=== PATIENT | male | born 1955 | race Caucasian/White ===

== ENCOUNTER 2020-02-16 14:35 | Emergency (ER) | payer OTHER, SELFPAY ==
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
[2020-02-16 14:36] VITALS: BP 133/102; PULSE 88; RESP 20; TEMP 36.5; O2SAT 100
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
[2020-02-16 15:44] LABS: Basophils Percent Auto 0.2 % (0.2-1.2); Hematocrit 40.1 % (42.0-52.0); Hemoglobin 13.7 g/dL (14.0-18.0); Immature Granulocyte Absolute 0.04 K/mm3 (0.00-0.031); Immature Granulocyte Percent A 0.3 % (0-0.5); Lymphocytes Absolute Auto 1.07 K/mm3 (0.9-3.2); Lymphocytes Percent Auto 7.9 % (18.3-44.2); Mean Corpuscular HGB Conc 34.2 g/dl (32-36); Mean Corpuscular Hemoglobin 30.7 pg (26-34); Mean Corpuscular Volume 89.9 fl (80-100); Mean Platelet Volume 11.5 fl (7.4-10.4); Monocytes Absolute Auto 1.2 K/mm3 (0.1-0.6); Neutrophils Absolute Auto 11.2 K/mm3 (1.3-6.7); Neutrophils Percent Auto 82.6 % (45.5-73.1); Platelet Count Result 212 k/mm3 (150-375); Red Blood Count 4.46 M/mm3 (4.6-6.20); Red Cell Distribution Width 12.9 % (11.5-14.5); White Blood Count 13.6 K/mm3 (4.5-10.0)
[2020-02-16 15:52] LABS: INR 1.1; Prothrombin Time 14.2 Seconds (11.1-14.7)
[2020-02-16 15:53] LABS: Partial Thromboplastin Time 24.7 SECONDS (22.3-36.8)
[2020-02-16 15:55] LABS: Alanine Aminotransferase 24 U/L (4-50); Albumin Level 4.1 g/dL (3.5-5.1); Alkaline Phosphatase 69 U/L (38-126); Aspartate Amino Transferase 37 U/L (17-59); Bilirubin,Total 1.2 mg/dL (0.2-1.3); Blood Urea Nitrogen 18 mg/dL (9-20); Calcium 9.3 mg/dL (8.4-10.2); Carbon Dioxide 26 mmol/L (22-30); Chloride 105 mmol/L (98-107); Estimated Glomerular Filt Rate > 60; Glucose 101 mg/dL (75-110); Potassium 3.5 mmol/L (3.4-5.0); Sodium 137 mmol/L (137-145)
[2020-02-16 17:33] VITALS: BP 158/80; PULSE 75; RESP 18; O2SAT 100
[2020-02-16 18:29] VITALS: BP 159/76; PULSE 72; RESP 16; O2SAT 100
== END 2020-02-16 18:46 | disposition short-term general hospital (02) ==
PROVIDERS: Physician Assistant; Emergency Provider Emergency Medicine; PCP Internal Medicine
DX: S09.90XA Unspecified injury of head, initial encounter (principal); K21.9 Gastro-esophageal reflux disease without esophagitis; I10 Essential (primary) hypertension; R41.82 Altered mental status, unspecified; M47.812 Spondylosis without myelopathy or radiculopathy, cervical region; V17.0XXA Pedal cycle driver injured in collision with fixed or stationary object in nontraffic accident, initial encounter; Y93.55 Activity, bike riding
CPT/HCPCS: 36415; 70450; 71046; 72125; 73130; 73521; 73590; 80053; 85025; 85610; 85730; 99285

== ENCOUNTER 2023-12-20 11:47 | Day surgery (SDC) | payer MEDICARE, OTHER, SELFPAY ==
[2023-12-07 09:00] VITALS: BMI 25.1
[2023-12-07 15:12] VITALS: BMI 25.1
[2023-12-20 12:17] VITALS: BP 151/91; PULSE 58; RESP 16; TEMP 36.3; O2SAT 100; BMI 24.7
--- NOTE | 2023-12-20 12:26 | PM.HPGS ---
History of Present Illness History of Present Illness Consent: Risks, benefits, and alternatives have been discussed and questions answered. Patient agrees to proceed with procedure. Chief complaint: Positive Cologuard test, Narrative: Allen Obrien is a 68 year old male presents for colonoscopy. Patient recently a positive Cologuard test. Patient denies any blood in his stool. He denies abdominal pain. Has had no bleeding. Family history noncontributory. Review of Systems Review of Systems: Review of Systems is noncontributory. Constitutional: Constitutional: Reports body ache(s) PMFSH Past Medical History Medical History (Updated 12/20/23 @ 12:28 by Vincenzo Murphy MD) History of gastroesophageal reflux (GERD) History of hypertension Social History Social History Smoking status: Never smoker Substance use type: does not use Living arrangements: with family Spiritual care concerns: No Meds Home Medications and Allergies Home Medications Medication Instructions Recorded Confirmed Type citalopram 20 mg tablet 20 mg PO DAILY 02/16/20 12/20/23 History hydrochlorothiazide 12.5 mg capsule See Rx Instructions .Route .COMPLEX 02/16/20 12/20/23 History lisinopril 20 mg tablet 20 mg PO DAILY 02/16/20 12/20/23 History omeprazole 20 mg capsule,delayed 20 mg PO DAILY PRN Indigestion 02/16/20 12/20/23 History release diclofenac sodium 75 mg 75 mg PO BID PRN Pain 12/07/23 12/20/23 History tablet,delayed release finasteride 5 mg tablet 5 mg PO DAILY 12/07/23 12/20/23 History levothyroxine 75 mcg tablet 75 mcg PO DAILY 12/07/23 12/20/23 History Allergies Allergy/AdvReac Type Severity Reaction Status Date / Time shellfish derived Allergy Other Verified 12/20/23 12:08 Vital Signs Vital Signs - 24 hr 12/20/23 12:17 Temperature 97.4 F L Pulse Rate 58 L Respiratory Rate 16 Blood Pressure 151/91 H Pulse Oximetry 100 Oxygen Delivery Room Air Exam Narrative: Physical exam reveals patient to be alert signs stable. HEENT exam is unremarkable. Patient is anicteric. Lungs are clear to auscultation and percussion. Heart is without murmur or extra sounds. Abdomen bowel sounds are present soft nontender with no organomegaly. Digital external rectal exam normal. Assessment and Plan Assessment and plan (1) Positive colorectal cancer screening using Cologuard test: Code(s): R19.5 - Other fecal abnormalities Status: Acute Assessment and Plan: Patient found to have positive Cologuard test. For this reason screening exam will be performed.
[2023-12-20] MEDS: LACTATED RINGERS 1,000 ML 150 ML IV CONT (12:27)
--- NOTE | 2023-12-20 12:37 | WPDANESEPPF ---
Anes - Initial Pre Proc Eval Procedure: Operation Date: 12/20/23 13:00 Proposed Procedures p Diagnostic Colonoscopy - Vincenzo Murphy MD Date/Time: 12/20/23 12:37 Surgeon: Vincenzo Murphy MD Pre Op Diagnosis: Positive Cologuard test, Patient Data Age: 68 Gender: M Height: 1.83 m Weight: 83 kg Last Vital Signs Temp 36.3 C L 12/20/23 12:17 Pulse 58 L 12/20/23 12:17 Resp 16 12/20/23 12:17 BP 151/91 H 12/20/23 12:17 Pulse Ox 100 12/20/23 12:17 O2 Del Method Room Air 12/20/23 12:17 Allergies Allergy/AdvReac Type Severity Reaction Status Date / Time shellfish derived Allergy Other Verified 12/20/23 12:08 Home Medications Medication Instructions Recorded Confirmed Type citalopram 20 mg tablet 20 mg PO DAILY 02/16/20 12/20/23 History hydrochlorothiazide 12.5 mg capsule See Rx Instructions .Route .COMPLEX 02/16/20 12/20/23 History lisinopril 20 mg tablet 20 mg PO DAILY 02/16/20 12/20/23 History omeprazole 20 mg capsule,delayed 20 mg PO DAILY PRN Indigestion 02/16/20 12/20/23 History release diclofenac sodium 75 mg 75 mg PO BID PRN Pain 12/07/23 12/20/23 History tablet,delayed release finasteride 5 mg tablet 5 mg PO DAILY 12/07/23 12/20/23 History levothyroxine 75 mcg tablet 75 mcg PO DAILY 12/07/23 12/20/23 History Patient hx anesthesia problems: none Family hx anesthesia problems: none Results Review: All pre-operative results and documents have been reviewed as part of the pre-operative evaluation. [facility] Past Medical History Medical History History of gastroesophageal reflux (GERD) History of hypertension Social History Social History Smoking status: Never smoker Substance use type: does not use Living arrangements: with family Spiritual care concerns: No Anes - Eval Final PreProcedure Day of Procedure 12/20/23 12:37 Patient weight: normal Heart: regular rate and rhythm Lungs: clear to auscultation Airway: Mallampati scale class II Neurological: alert and oriented Last oral intake: >/= 8 hours ASA classification: III Emergent: no Anesthetic plan: proceed Anesthesia type and monitoring: general GIVS and standard monitoring Results Review: All pre-operative results and documents have been reviewed as part of the pre-operative evaluation. Informed Consent: The patient's anesthetic plan and its attendant risks and benefits were discussed with the patient/family/POA. Questions were solicited and answers provided to the satisfaction of the patient/family/POA.
[2023-12-20] MEDS: SIMETHICONE ORAL SUSPENSION 20 MG/0.3 ML 30 ML BOTTLE 0.6 ML IRRIGATION (13:06)
[2023-12-20 13:15] VITALS: BP 132/72; PULSE 62; RESP 18; O2SAT 98
[2023-12-20 13:25] VITALS: BP 125/78; PULSE 68; RESP 18; O2SAT 98
--- NOTE | 2023-12-20 13:26 | WPDANESPN ---
Anes - Prog Note Post-Op Date/Time: 12/20/23 13:26 Cardiovascular status: normal Respiratory status: normal Airway patency: baseline Mental status: baseline Post-Op hydration status: normal Vital Signs: Last Vital Signs Temp 36.3 C L 12/20/23 12:17 Pulse 62 12/20/23 13:15 Resp 18 12/20/23 13:15 BP 132/72 12/20/23 13:15 Pulse Ox 98 12/20/23 13:15 O2 Del Method Room Air 12/20/23 13:15 Pain Score (VAS): 0 I/O: Intake & Output 12/19/23 12/20/23 12/20/23 23:59 07:59 15:59 Intake Total 400 Balance 400 Patient Feedback: Patient satisfied with anesthetic care.
[2023-12-20 13:35] VITALS: BP 137/81; PULSE 68; RESP 18; O2SAT 100
== END 2023-12-20 13:45 | disposition home or self-care (01) ==
PROVIDERS: PCP Internal Medicine; Visit Provider Internal Medicine Gastroenterology
PROC: 0DJD8ZZ Inspection of Lower Intestinal Tract, Via Natural or Artificial Opening Endoscopic (ICD-10-PCS; CPT 45378; principal; 2023-12-20 13:00)
DX: R19.5 Other fecal abnormalities (principal); K64.8 Other hemorrhoids
CPT/HCPCS: G0121; 45378

== ENCOUNTER 2025-01-06 06:56 | Outpatient (CLI) | payer MEDICARE, OTHER, SELFPAY ==
--- NOTE | ~2025-01-06 | MR_ITS ---
MRI of the right knee Clinical history: Pain Technique: Coronal proton density and proton density-weighted images, sagittal proton-density and T2 fat-sat images, and axial proton-density fat-saturated images were acquired. Findings: Anterior and posterior cruciate ligaments are intact. Medial collateral ligament and the la teral collateral ligament complex are intact. Popliteus tendon is intact. There is complex tearing of the posterior horn and body of the medial meniscus which are largely dimi nutive and somewhat macerated. No lateral meniscal tear evident. There is mild to moderate chondral malacia patella. There is patchy moderate chondral malacia the fem oral trochlea. There is diffuse grade IV chondromalacia throughout the medial compartment. There is m ild chondral thinning in the lateral compartment. Tricompartmental osteophyte formation is present. T here is mild amorphous reactive marrow edema in the medial tibial plateau and medial femoral condyle. There is cystic enthesopathic change at the PCL insertion of the tibia. Extensor mechanism is intact. Moderate joint effusion present. 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 There are loose bodies within the Rodríguez's cyst, largest measuring 1.2 cm and 0.9 cm in diameter. Impression: Extensive complex tearing of the posterior horn and body of the medial meniscus. Severe medial compartment degenerative change. Moderate patellofemoral compartment degenerative rojas e. Mild to moderate lateral compartment degenerative change. 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 Moderate joint effusion. Reviewed, dictated and finalized at location . Impression: Extensive complex tearing of the posterior horn and body of the medial meniscus . Severe medial compartment degenerative change. Moderate patellofemoral compartm ent degenerative change. Mild to moderate lateral compartment degenerative guthrie ge. 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 Moderate joint effusion.
== END 2025-01-06 06:57 | disposition home or self-care (01) ==
LOC: MICIMG 06:56
PROVIDERS: PCP Internal Medicine; Visit Provider Orthopaedic Surgery
DX: S83.231A Complex tear of medial meniscus, current injury, right knee, initial encounter (principal); X58.XXXA Exposure to other specified factors, initial encounter; M17.11 Unilateral primary osteoarthritis, right knee; M71.21 Synovial cyst of popliteal space [Baker], right knee; M25.461 Effusion, right knee
CPT/HCPCS: 73721

== ENCOUNTER 2025-01-23 13:06 | Outpatient (CLI) | payer MEDICARE, OTHER, SELFPAY ==
--- OUTSIDE RECORDS SUMMARY | 2025-01-23 14:12 | XMS_ITS | Data Portability ---
Author Organization [place] [facility], Main Office Address [address] [place] [id number] Care Team Providers Care Forging Die Sinker Name Role Phone SHEYLA QUIROS Primary Care Provider SHEYLA QUIROS Referring Provider [phone] Assessment Encounter Date Assessment Date Assessment LastModified by Organization Details LastModified Time 06/12/2023 06/12/2023 patient returns. He is here requesting a cortisone shot in his right knee. In 1 week he is leaving for a trip to [facility] and [facility] and he would like cortisone shot today to optimize his comfort in his right knee. He had x-rays in September of this year which demonstrate rather advanced medial compartment osteoarthritis of the right knee with sclerosis and some flattening of medial femoral condyle. His left knee incidentally has about 1.5 mm of medial joint space remaining. He started diclofenac 2 months ago when he was having lot of posterior knee and calf pain and this helped dramatically. In fact over last couple weeks he has cut back on the diclofenac to 1 a day or even 1 every other day. On exam today there is minimal trace effusion right knee. He does have a varus alignment range of motion 0-140. Skin looks healthy. Impression: Patient has severe medial compartment osteoarthritis the right knee. He is tolerating this well. He would like a cortisone shot today before leaving on his trip to [facility]. I discussed risks of side effects including risk of infection with him. After ChloraPrep prep, 20 mg of Kenalog and 4 cc of 0.5% ropivacaine were injected the right knee without difficulty. I explained that when he gets back if he would like to stay on the diclofenac we will need to check blood work in will order a CBC and CMP to make sure it is not showing evidence of liver or kidney side effects or GI blood loss. This was discussed. I will see him back in 3 months to assess progress. Not available 06/12/2023 14:41:02 09/11/2023 09/11/2023 Impression: Patient has radiographically severe osteoarthritis of the right knee but his symptoms are minimal. I have explained to him that the primary indication for doing a knee replacement is to alleviate pain and since he is not having pain, observation is appropriate at this time. We did talk about the fact that he might be a candidate for partial knee replacement and when he reaches a point where he is symptomatic enough to consider surgery, additional workup including an MRI scan of the indicated before deciding on whether not he would be a candidate for partial knee replacement. I have given him ortho info handouts on total knee replacement partial knee replacement and the [facility] booklet. I have offered him a cortisone shot today but he declines. He states he does not needed as he is asymptomatic. I have discussed with him that I expected some point his right knee will start bother him enough that knee replacement would be something he would want to pursue I am happy to see him back at any time for further discussion. 20 minutes were spent total care this patient more than half the time spent in [id number]-[id number] care. Not available 09/19/2023 17:16:37 Plan of Treatment Reminders Order Date Submit Date Provider Last Modified By Organization Details Last Modified Time Details Appointments None recorded. Lab PSA, serum or plasma 2024 025 [facility], [address] [facility], [place], [address], 5 09:41:20 CBC w/ auto diff 2024 025 [facility], [address] [facility], [place], [address], 5 09:41:19 CMP, serum or plasma 2024 025 [id number] [facility], [address] [facility], [place], [address], 5 09:41:19 TSH, serum or plasma 2024 025 [id number] [facility], [address] [facility], [place], [address], 5 09:41:20 T4, free, serum 2024 025 [facility], [address], [place], [address], 5 09:41:20 lipid panel, serum 2024 025 [id number] [facility], [address], [place], [address], 5 09:41:20 PSA, serum or plasma 2023 024 [id number] [facility], [address], [place], [address], 4 12:31:12 CBC w/ auto diff 2023 024 [id number] [facility], [address], [place], [address], 4 12:31:10 CMP, serum or plasma 2023 024 [facility], [address], [place], [address], 4 12:31:11 TSH, serum or plasma 2023 024 [id number] [facility], [address], [place], [address], 4 12:31:11 T4, free, serum 2023 024 [id number] [facility], [address], [place], [address], 4 12:31:11 lipid panel, serum 2023 024 [email or web address] [facility], [address], [place], [address], 4 12:31:11 Referral None recorded. Procedures injection/a spiration joint/bursa (PROC) - in office procedure, administere d by provider 2022 023 In-Office Order, Internal Use Only DO Not Attach Compendium DO Not Attach Compendium, Do Not Delete/merge, [id number] 3 14:19:20 Surgeries None recorded. Imaging None recorded. Medication Orders Protonix 40 mg tablet,edgar yed release 2024 025 [id number] [address] [place], [address], 5 16:06:16 Kenalog 10 mg/mL suspension for injection 2022 023 [id number] [place], [address], 5 15:40:46 ropivacaine (PF) 5 mg/mL (0.5 %) injection solution 2022 023 [id number] [place], [address], 5 15:40:56 Patient TargetsNo targets recorded. Patient Instructions Encounter Date Encounter Id Patient Instructions Last Modified By Organization Details Last Modified Time 11/10/2023 [id number] risk assessment* FIGUEROA Not availabl e 11/10/2023 16:32:09 Personalized [facility] Plan and Screening Recommendations Advance Directives - Do you have one? Yes Advance Directives - Do we have your advance directive on file in your health record? No, please bring in a copy at your earliest convenience Primary Prevention/Interven tion (prevents or decreases the chance of common diseases from occurring) Smoking Risk: Non Smoker Alcohol Misuse Screening: Negative Weight: Appropriate Physical activity: Appropriate physical activity Nutrition: Good Fall Risk (screened today): Low Vaccines Pneumococcal: Ordered Recommended today Recommended today, but you have declined Influenza: Ordered Recommended today Recommended today, but you have declined Chronic Disease Risks Stroke: Low Risk Intermediate Risk I have no recommendations Act kaleb diagnosis, Continue current treatment plan Heart Attack: Low risk Intermediate Risk I have no recommendations Act kaleb diagnosis, Continue current treatment plan Clogging of the Arteries: Low risk Intermediate Risk I have no recommendations Act kaleb diagnosis, Continue current treatment plan Diabetes: Low Risk I have no recommendations Secondary Prevention/Interven tion (detects treatable diseases before they may cause symptoms, disability, or ) Prostate Cancer Screening: Colon Cancer Screening: Colonoscopy Date Screening Last Performed: _unsure___ Eye Disease Screening: Dementia Risk: Low I have no recommendations Depression Screening: Negative Active diagnosis, Continue current treatment plan [email or web address] Not available 11/10/2023 15:18:54 Wellness evaluat ion risk assessment stable. Follow-up for hypertension-hypoth yroidism -hyperlipidemia -benign prostatic hypertrophy all clinically stable. Check blood work in the form of a CBC, CMP, lipid, thyroid and PSA. Continue on current Rx follow-up in six months. Portions of the record may have been created with voice recognition software. Occasional wrong-word or s ound-a-like substitutions may have occurred due to the inherent limitations of voice recognition software. Read the chart carefully and recognize, using context, where substitutions have occurred. [email or web address] Not available 11/10/2023 16:00:57 05/09/2024 [id number] Follow-up essent ial hypertension, hypothyroidism, benign prostatic hypertrophy and anxiety disorder all clinically stable. Will continue on current Rx recheck back in six months check blood work at that time. Next Appointment: 6 Months Approximate Date: 11/05/2024 Portions of the record may have been created with voice recognition software. Occasional wrong-word or s ound-a-like substitutions may have occurred due to the inherent limitations of voice recognition software. Read the chart carefully and recognize, using context, where substitutions have occurred. [email or web address] Not available 05/09/2024 16:13:24 11/07/2024 [id number] Follow-up essent ial hypertension, hypothyroidism, hyperlipidemia, GERD. Check blood work consisting of CBC, CMP, lipid, thyroid, PSA. Medically is doing well otherwise. Will start on some Protonix 40 mg once daily see if we can improve on his reflux symptomatology. Follow-up in six months Follow Up: 6 Months Approximate Date: 05/06/2025 Portions of record are template driven. When necessary additional context will be provided. Additionally some portions have been created with voice recognition software. Occasional wrong-word or s ound-a-like substitutions may have occurred due to the inherent limitations of voice recognition software. Read the chart carefully and recognize, using context, where substitutions may have occurred. Created: Sheyla Quiros M.D. 11.07.2024 03:06 PM [email or web address] Not available 11/07/2024 16:06:10 Reason for Referral None Reported. Results Created Date Observation Date Name Description Value Unit Range Abnormal Flag Note LastModifiedBy Organization Detail LastModifiedTime 07/17/2007/18/2023 T4, FREE T4, free 0.7 NG/dL 0.8-1. 8 low Not Available [facility] [address], [address], 07/18/2023 06:53:06 07/17/2007/18/2023 TSH TSH 7.43 mIU/L 0.40-4 .50 high Not Available [facility] [address], [address], 07/18/2023 06:53:07 07/31/2008/02/2023 THYRO GLOBU HAN ANTIB ODIES thyroglobuli n antibodies 7 IU/mL < or = 1 high Not Available [facility] [address], [address], 08/02/2023 09:19:49 07/31/20 23 08/02/2023 THYRO ID PEROX IDASE ANTIB ODIES thyroid peroxidase antibodies 25 IU/mL <9 high Not Available [facility] [address], [address], 08/02/2023 09:19:50 09/28/19 24 09/29/2023 T4, FREE T4, free 1.0 NG/dL 0.8-1. 8 normal Not Available [facility] [address], [address], 09/29/2023 03:22:15 09/28/19 24 09/29/2023 TSH TSH 11.04 mIU/L 0.40-4 .50 high Not Available [facility] [address], [place], [address], 09/29/2023 03:22:16 11/27/19 24 11/27/2023 COLOG UARD cologuard result reportable POSITI VE negati ve abnormal POSIT KALEB TEST RESUL T. A posit kaleb Colog uard resul t shoul d be follo wed with a colon oscop y or visua l exami natio n of the colon . The thomas l value (refe rence range ) for this assay is negat kaleb. TEST DESCR IPTIO N: Rinard site algor ithmi c santiago sis of stool DNA-b iomar kers with hemog lobin immun oassa y. Quant itati ve value s of indiv idual bioma rkers are not repor table and are not assoc iated with indiv idual bioma rker resul t refer ence range s. Colog uard is inten ded for color ectal cance r scree walt of adult s of eithe r sex, 45 years or older , who are at [facility] for color ectal cance r (CRC) . Colog uard has been appro tequila for use by the U.S. FDA. The perfo rmanc e of Colog uard was estab lishe d in a cross secti onal study of [facility] adult s aged 50-84 . Colog uard perfo rmanc e in patie nts ages 45 to 49 years was estim ated by josy-g victoria santiago sis of near- age group s. Colon oscop ies perfo rmed for a posit kaleb resul t may find as the most clini braeden signi fican t lesio n: color ectal cance r [4.0% ], advan landon adeno ma (incl uding sessi le marj ericka polyp s great er than or equal to 1cm diame ter) [20%] or non- advan landon adeno ma [31%] ; or no color ectal neopl elvia [45%] . These estim ates are deriv ed from a prosp ectiv e cross -sect ional scree walt study of 10,00 0 indiv idual s at avera ge risk for color ectal cance r who were scree adryan with both Colog uard and colon oscop y. (Zack Barnard. et al, N Engl J Med 2014; 370(1 4):12 86-12 97.) Colog uard may produ ce a false negat kaleb or false posit kaleb resul t (no color ectal cance r or preca ncero us polyp prese nt at colon oscop y follo w up). A negat kaleb Colog uard test resul t does not guara ntee the absen ce of CRC or advan landon adeno ma (pre- cance r). The curre nt Colog uard scree walt inter conrado is every 3 years . (Amer ican Cance r Socie ty and U.S. Multi -Soci ety Task Force ). Colog uard perfo rmanc e data in a 10,00 0 patie nt pivot al study using colon oscop y as the refer ence metho d can be acces sed at the follo wing locat ion: www.e xactl abs.c om/re shala . Addit ional descr iptio n of the Colog uard test proce ss, warni ngs and preca ution s can be found at www.c bassem esteband.c om. Not Available [facility] (Cologuard Orders Only) [address], [place], [address], 12/02/2023 13:19:24 11/30/19 24 12/01/2023 LIPID PANEL , STAND CARMEN cholesterol, total 201 mg/dL <200 high Not Available [facility] [address] [place], [address], 12/01/2023 05:50:56 11/30/19 24 12/01/2023 LIPID PANEL , STAND CARMEN HDL cholesterol 48 mg/dL > or = 40 normal Not Available [facility] [address] [place], [address], 12/01/2023 05:50:56 11/30/19 24 12/01/2023 LIPID PANEL , STAND CARMEN triglyceride s 142 mg/dL <150 normal Not Available [facility] [address] [place], [address], 12/01/2023 05:50:56 11/30/19 24 12/01/2023 LIPID PANEL , STAND CARMEN LDL-choleste rol 128 mg/dL _(erick c) high Refer ence range : <100 Jj able range <100 mg/dL for prima ry preve ntion ; <70 mg/dL for patie nts with CHD or diabe tic patie nts with > or = 2 CHD risk facto rs. LDL-C is now calcu lated using the Angie n-Hop kins teau matheus n, which is a valid ated novel clarence mejiate r accur acy than the Fried angelica equat ion in the estim ation of LDL-C . Angie heath SS et al. RACHEL. 2013; 310(1 9): 2061- 2068 (http ://ed ucati on.Qu jessica[employer]. com/f aq/FA Q164) Not Available [facility] [address] [place], [address], 12/01/2023 05:50:56 11/30/19 24 12/01/2023 LIPID PANEL , STAND CARMEN chol/HDLC ratio 4.2 (calc ) <5.0 normal Not Available [facility] [address] [place], [address], 12/01/2023 05:50:56 11/30/19 24 12/01/2023 LIPID PANEL , STAND CARMEN non HDL cholesterol 153 mg/dL _(erick c) <130 high For patie nts with diabe rory plus 1 major ASCVD risk facto r, treat ing to a non-H DL-C goal of <100 mg/dL (LDL- C of <70 mg/dL ) is consi dered a thera peuti c optio n. Not Available [facility] [address] [place], [address], 12/01/2023 05:50:56 11/30/19 24 12/01/2023 COMPR EHENS KALEB METAB OLIC PANEL glucose 88 mg/dL 65-99 normal Fasti ng refer ence inter conrado Not Available [address], [address], 12/01/2023 05:50:58 11/30/19 24 12/01/2023 COMPR EHENS KALEB METAB OLIC PANEL urea nitrogen (BUN) 20 mg/dL 7-25 normal Not Available [address], [address], 12/01/2023 05:50:58 11/30/19 24 12/01/2023 COMPR EHENS KALEB METAB OLIC PANEL creatinine 1.08 mg/dL 0.70-1 .35 normal Not Available [address], [address], 12/01/2023 05:50:58 11/30/19 24 12/01/2023 COMPR EHENS KALEB METAB OLIC PANEL eGFR 76 mL/mi n/1.7 3m2 > or = 60 normal Not Available [address], [address], 12/01/2023 05:50:58 11/30/19 24 12/01/2023 COMPR EHENS KALEB METAB OLIC PANEL BUN/creatini ne ratio SEE NOTE: (calc ) 6-22 Not Repor ericka: BUN and Creat inine are withi n refer ence range . Not Available [address], [address], 12/01/2023 05:50:58 11/30/19 24 12/01/2023 COMPR EHENS KALEB METAB OLIC PANEL sodium 139 mmol/ L 135-14 6 normal Not Available [address], [address], 12/01/2023 05:50:58 11/30/19 24 12/01/2023 COMPR EHENS KALEB METAB OLIC PANEL potassium 4.4 mmol/ L 3.5-5. 3 normal Not Available [address], [address], 12/01/2023 05:50:58 11/30/19 24 12/01/2023 COMPR EHENS KALEB METAB OLIC PANEL chloride 104 mmol/ L 98-110 normal Not Available [address], [address], 12/01/2023 05:50:58 11/30/19 24 12/01/2023 COMPR EHENS KALEB METAB OLIC PANEL carbon dioxide 30 mmol/ L 20-32 normal Not Available [address], [address], 12/01/2023 05:50:58 11/30/19 24 12/01/2023 COMPR EHENS KALEB METAB OLIC PANEL calcium 9.0 mg/dL 8.6-10 .3 normal Not Available [address], [address], 12/01/2023 05:50:58 11/30/19 24 12/01/2023 COMPR EHENS KALEB METAB OLIC PANEL protein, total 6.3 g/dL 6.1-8. 1 normal Not Available [address], [address], 12/01/2023 05:50:58 11/30/19 24 12/01/2023 COMPR EHENS KALEB METAB OLIC PANEL albumin 3.9 g/dL 3.6-5. 1 normal Not Available [address], [address], 12/01/2023 05:50:58 11/30/19 24 12/01/2023 COMPR EHENS KALEB METAB OLIC PANEL globulin 2.4 g/dL_ (calc ) 1.9-3. 7 normal Not Available [address] [place], [address], 12/01/2023 05:50:58 11/30/19 24 12/01/2023 COMPR EHENS KALEB METAB OLIC PANEL albumin/glob ulin ratio 1.6 (calc ) 1.0-2. 5 normal Not Available [address], [address], 12/01/2023 05:50:58 11/30/19 24 12/01/2023 COMPR EHENS KALEB METAB OLIC PANEL bilirubin, total 0.7 mg/dL 0.2-1. 2 normal Not Available [address], [address], 12/01/2023 05:50:58 11/30/19 24 12/01/2023 COMPR EHENS KALEB METAB OLIC PANEL alkaline phosphatase 53 U/L 35-144 normal Not Available [address], [address], 12/01/2023 05:50:58 11/30/19 24 12/01/2023 COMPR EHENS KALEB METAB OLIC PANEL AST 19 U/L 10-35 normal Not Available [address], [address], 12/01/2023 05:50:58 11/30/19 24 12/01/2023 COMPR EHENS KALEB METAB OLIC PANEL ALT 14 U/L 9-46 normal Not Available [address], [address], 12/01/2023 05:50:58 11/30/19 24 12/01/2023 CBC (INCL UDES DIFF/ PLT) white blood cell count 6.8 thous and/u L 3.8-10 .8 normal Not Available [address], [address], 12/01/2023 05:50:59 11/30/19 24 12/01/2023 CBC (INCL UDES DIFF/ PLT) red blood cell count 4.30 jordan on/uL 4.20-5 .80 normal Not Available [address], [address], 12/01/2023 05:50:59 11/30/19 24 12/01/2023 CBC (INCL UDES DIFF/ PLT) hemoglobin 13.2 g/dL 13.2-1 7.1 normal Not Available [address], [address], 12/01/2023 05:50:59 11/30/19 24 12/01/2023 CBC (INCL UDES DIFF/ PLT) hematocrit 40.5 % 38.5-5 0.0 normal Not Available [address], [address], 12/01/2023 05:50:59 11/30/19 24 12/01/2023 CBC (INCL UDES DIFF/ PLT) MCV 94.2 fL 80.0-1 00.0 normal Not Available [address], [address], 12/01/2023 05:50:59 11/30/19 24 12/01/2023 CBC (INCL UDES DIFF/ PLT) MCH 30.7 pg 27.0-3 3.0 normal Not Available [address], [address], 12/01/2023 05:50:59 11/30/19 24 12/01/2023 CBC (INCL UDES DIFF/ PLT) MCHC 32.6 g/dL 32.0-3 6.0 normal Not Available [address], [address], 12/01/2023 05:50:59 11/30/19 24 12/01/2023 CBC (INCL UDES DIFF/ PLT) RDW 13.1 % 11.0-1 5.0 normal Not Available [address], [address], 12/01/2023 05:50:59 11/30/19 24 12/01/2023 CBC (INCL UDES DIFF/ PLT) platelet count 251 thous and/u L 140-40 0 normal Not Available [address], [address], 12/01/2023 05:50:59 11/30/19 24 12/01/2023 CBC (INCL UDES DIFF/ PLT) MPV 11.8 fL 7.5-12 .5 normal Not Available [address], [address], 12/01/2023 05:50:59 11/30/19 24 12/01/2023 CBC (INCL UDES DIFF/ PLT) absolute neutrophils 2577 cells /uL 1500-7 800 normal Not Available [address], [address], 12/01/2023 05:50:59 11/30/19 24 12/01/2023 CBC (INCL UDES DIFF/ PLT) absolute lymphocytes 2992 cells /uL 850-39 00 normal Not Available [address], [address], 12/01/2023 05:50:59 11/30/19 24 12/01/2023 CBC (INCL UDES DIFF/ PLT) absolute monocytes 809 cells /uL 200-95 0 normal Not Available [facility] [address], [address], 12/01/2023 05:50:59 11/30/19 24 12/01/2023 CBC (INCL UDES DIFF/ PLT) absolute eosinophils 394 cells /uL 15-500 normal Not Available [facility] [address], [address], 12/01/2023 05:50:59 11/30/19 24 12/01/2023 CBC (INCL UDES DIFF/ PLT) absolute basophils 27 cells /uL 0-200 normal Not Available [address], [address], 12/01/2023 05:50:59 11/30/19 24 12/01/2023 CBC (INCL UDES DIFF/ PLT) neutrophils 37.9 % normal Not Available [address], [address], 12/01/2023 05:50:59 11/30/19 24 12/01/2023 CBC (INCL UDES DIFF/ PLT) lymphocytes 44.0 % normal Not Available [address], [address], 12/01/2023 05:50:59 11/30/19 24 12/01/2023 CBC (INCL UDES DIFF/ PLT) monocytes 11.9 % normal Not Available [address], [address], 12/01/2023 05:50:59 11/30/19 24 12/01/2023 CBC (INCL UDES DIFF/ PLT) eosinophils 5.8 % normal Not Available [address], [address], 12/01/2023 05:50:59 11/30/19 24 12/01/2023 CBC (INCL UDES DIFF/ PLT) basophils 0.4 % normal Not Available [address], [address], 12/01/2023 05:50:59 11/30/19 24 12/01/2023 T4, FREE T4, free 1.2 NG/dL 0.8-1. 8 normal Not Available [address], [address], 12/01/2023 05:51:00 11/30/19 24 12/01/2023 PSA, TOTAL PSA, total 0.17 NG/mL < or = 4.00 normal The total PSA value from this assay syste m is stand ardiz ed again st the WHO stand carmen. The test resul t will be appro ximat urszula 20% lower when pk red to the equim olar- stand ardiz ed total PSA (Kulkarni man Coult er). Pk rison of seria l PSA resul ts shoul d be inter prete d with this fact in mind. This test was perfo rmed using the Nanomech chemi lumin escen t metho d. Value s obtai adryan from diffe rent assay metho ds canno t be used inter rojas eably . PSA level s, regar dless of value , shoul d not be inter prete d as absol nisqually evide nce of the prese nce or absen ce of disea se. Not Available [facility] [address], [address], 12/01/2023 05:51:01 11/30/19 24 12/01/2023 TSH TSH 1.83 mIU/L 0.40-4 .50 normal Not Available [facility] [address], [address], 12/01/2023 05:51:02 11/19/19 25 11/20/2024 LIPID PANEL , STAND CARMEN cholesterol, total 205 mg/dL <200 high Not Available [facility] [address], [address], 11/20/2024 06:02:33 11/19/19 25 11/20/2024 LIPID PANEL , STAND CARMEN HDL cholesterol 54 mg/dL > or = 40 normal Not Available [facility] [address], [address], 11/20/2024 06:02:33 11/19/19 25 11/20/2024 LIPID PANEL , STAND CARMEN triglyceride s 80 mg/dL <150 normal Not Available [facility] [address], [address], 11/20/2024 06:02:33 11/19/1911/20/2024 LIPID PANEL , STAND CARMEN LDL-choleste rol 134 mg/dL _(erick c) high Refer ence range : <100 Jj able range <100 mg/dL for prima ry preve ntion ; <70 mg/dL for patie nts with CHD or diabe tic patie nts with > or = 2 CHD risk facto rs. LDL-C is now calcu lated using the Angie n-Hop kins calcu matheus n, which is a valid ated novel metho d provi ding junito r accur acy than the Fried angelica equat ion in the estim ation of LDL-C . Angie heath SS et al. RACHEL. 2013; 310(1 9): 2061- 2068 (http ://ed ucati on.[employer] [facility]. com/f aq/FA Q164) Not Available [facility] [address] [place], [address], 11/20/2024 06:02:33 11/19/1911/20/2024 LIPID PANEL , STAND CARMEN chol/HDLC ratio 3.8 (calc ) <5.0 normal Not Available [facility] [address] [place], [address], 11/20/2024 06:02:33 11/19/1911/20/2024 LIPID PANEL , STAND CARMEN non HDL cholesterol 151 mg/dL _(erick c) <130 high For patie nts with diabe rory plus 1 major ASCVD risk facto r, treat ing to a non-H DL-C goal of <100 mg/dL (LDL- C of <70 mg/dL ) is renée pao n. Not Available [facility] [address] [place], [address], 11/20/2024 06:02:33 11/19/1911/20/2024 COMPR EHENS KALEB METAB OLIC PANEL glucose 93 mg/dL 65-99 normal Fasti ng refer ence inter conrado Not Available [address], [address], 11/20/2024 06:02:34 11/19/19 25 11/20/2024 COMPR EHENS KALEB METAB OLIC PANEL urea nitrogen (BUN) 20 mg/dL 7-25 normal Not Available [address], [address], 11/20/2024 06:02:34 11/19/19 25 11/20/2024 COMPR EHENS KALEB METAB OLIC PANEL creatinine 1.08 mg/dL 0.70-1 .35 normal Not Available [address], [address], 11/20/2024 06:02:34 11/19/19 25 11/20/2024 COMPR EHENS KALEB METAB OLIC PANEL eGFR 75 mL/mi n/1.7 3m2 > or = 60 normal Not Available [address], [address], 11/20/2024 06:02:34 11/19/1911/20/2024 COMPR EHENS KALEB METAB OLIC PANEL BUN/creatini ne ratio SEE NOTE: (calc ) 6-22 Not Repor ericka: BUN and Creat inine are withi n refer ence range . Not Available [address], [address], 11/20/2024 06:02:34 11/19/19 25 11/20/2024 COMPR EHENS KALEB METAB OLIC PANEL sodium 139 mmol/ L 135-14 6 normal Not Available [address], [address], 11/20/2024 06:02:34 11/19/19 25 11/20/2024 COMPR EHENS KALEB METAB OLIC PANEL potassium 4.1 mmol/ L 3.5-5. 3 normal Not Available [address], [address], 11/20/2024 06:02:34 11/19/1911/20/2024 COMPR EHENS KALEB METAB OLIC PANEL chloride 103 mmol/ L 98-110 normal Not Available [address], [address], 11/20/2024 06:02:34 11/19/1911/20/2024 COMPR EHENS KALEB METAB OLIC PANEL carbon dioxide 32 mmol/ L 20-32 normal Not Available [address], [address], 11/20/2024 06:02:34 11/19/1911/20/2024 COMPR EHENS KALEB METAB OLIC PANEL calcium 9.1 mg/dL 8.6-10 .3 normal Not Available [address], [address], 11/20/2024 06:02:34 11/19/19 25 11/20/2024 COMPR EHENS KALEB METAB OLIC PANEL protein, total 6.4 g/dL 6.1-8. 1 normal Not Available [address], [address], 11/20/2024 06:02:34 11/19/1911/20/2024 COMPR EHENS KALEB METAB OLIC PANEL albumin 4.0 g/dL 3.6-5. 1 normal Not Available [address], [address], 11/20/2024 06:02:34 11/19/1911/20/2024 COMPR EHENS KALEB METAB OLIC PANEL globulin 2.4 g/dL_ (calc ) 1.9-3. 7 normal Not Available [address], [address], 11/20/2024 06:02:34 11/19/19 25 11/20/2024 COMPR EHENS KALEB METAB OLIC PANEL albumin/glob ulin ratio 1.7 (calc ) 1.0-2. 5 normal Not Available [address], [address], 11/20/2024 06:02:34 11/19/1911/20/2024 COMPR EHENS KALEB METAB OLIC PANEL bilirubin, total 0.7 mg/dL 0.2-1. 2 normal Not Available [address], [address], 11/20/2024 06:02:34 11/19/1911/20/2024 COMPR EHENS KALEB METAB OLIC PANEL alkaline phosphatase 57 U/L 35-144 normal Not Available [address], [address], 11/20/2024 06:02:34 11/19/19 25 11/20/2024 COMPR EHENS KALEB METAB OLIC PANEL AST 19 U/L 10-35 normal Not Available [address], [address], 11/20/2024 06:02:34 11/19/1911/20/2024 COMPR EHENS KALEB METAB OLIC PANEL ALT 13 U/L 9-46 normal Not Available [address], [address], 11/20/2024 06:02:34 11/19/1911/20/2024 CBC (INCL UDES DIFF/ PLT) white blood cell count 5.5 thous and/u L 3.8-10 .8 normal Not Available [address], [address], 11/20/2024 06:02:35 11/19/19 25 11/20/2024 CBC (INCL UDES DIFF/ PLT) red blood cell count 4.29 jordan on/uL 4.20-5 .80 normal Not Available [address], [address], 11/20/2024 06:02:35 11/19/1911/20/2024 CBC (INCL UDES DIFF/ PLT) hemoglobin 13.3 g/dL 13.2-1 7.1 normal Not Available [address], [address], 11/20/2024 06:02:35 11/19/1911/20/2024 CBC (INCL UDES DIFF/ PLT) hematocrit 40.6 % 38.5-5 0.0 normal Not Available [address], [address], 11/20/2024 06:02:35 11/19/1911/20/2024 CBC (INCL UDES DIFF/ PLT) MCV 94.6 fL 80.0-1 00.0 normal Not Available [address], [address], 11/20/2024 06:02:35 11/19/1911/20/2024 CBC (INCL UDES DIFF/ PLT) MCH 31.0 pg 27.0-3 3.0 normal Not Available [address], [address], 11/20/2024 06:02:35 11/19/1911/20/2024 CBC (INCL UDES DIFF/ PLT) MCHC 32.8 g/dL 32.0-3 6.0 normal For adult s, a sligh t decre ase in the calcu lated MCHC value (in the range of 30 to 32 g/dL) is most likel y not clini braeden signi jacki t; kyle er, it shoul d be inter prete d with cauti on in corre latio n with other red cell delia eters and the patie nt's clini erick condi tion. Not Available [address], [address], 11/20/2024 06:02:35 11/19/1911/20/2024 CBC (INCL UDES DIFF/ PLT) RDW 12.3 % 11.0-1 5.0 normal Not Available [address], [address], 11/20/2024 06:02:35 11/19/1911/20/2024 CBC (INCL UDES DIFF/ PLT) platelet count 285 thous and/u L 140-40 0 normal Not Available [address], [address], 11/20/2024 06:02:35 11/19/1911/20/2024 CBC (INCL UDES DIFF/ PLT) MPV 11.3 fL 7.5-12 .5 normal Not Available [address], [address], 11/20/2024 06:02:35 11/19/1911/20/2024 CBC (INCL UDES DIFF/ PLT) absolute neutrophils 2228 cells /uL 1500-7 800 normal Not Available [address], [address], 11/20/2024 06:02:35 11/19/1911/20/2024 CBC (INCL UDES DIFF/ PLT) absolute lymphocytes 2354 cells /uL 850-39 00 normal Not Available [address], [address], 11/20/2024 06:02:35 11/19/1911/20/2024 CBC (INCL UDES DIFF/ PLT) absolute monocytes 556 cells /uL 200-95 0 normal Not Available [address], [address], 11/20/2024 06:02:35 11/19/19 25 11/20/2024 CBC (INCL UDES DIFF/ PLT) absolute eosinophils 325 cells /uL 15-500 normal Not Available [address], [address], 11/20/2024 06:02:35 11/19/19 25 11/20/2024 CBC (INCL UDES DIFF/ PLT) absolute basophils 39 cells /uL 0-200 normal Not Available [address], [address], 11/20/2024 06:02:35 11/19/1911/20/2024 CBC (INCL UDES DIFF/ PLT) neutrophils 40.5 % normal Not Available [address], [address], 11/20/2024 06:02:35 11/19/1911/20/2024 CBC (INCL UDES DIFF/ PLT) lymphocytes 42.8 % normal Not Available [address], [address], 11/20/2024 06:02:35 11/19/1911/20/2024 CBC (INCL UDES DIFF/ PLT) monocytes 10.1 % normal Not Available [address], [address], 11/20/2024 06:02:35 11/19/1911/20/2024 CBC (INCL UDES DIFF/ PLT) eosinophils 5.9 % normal Not Available [address], [address], 11/20/2024 06:02:35 11/19/1911/20/2024 CBC (INCL UDES DIFF/ PLT) basophils 0.7 % normal Not Available [address], [address], 11/20/2024 06:02:35 11/19/1911/20/2024 PSA, TOTAL PSA, total 0.18 NG/mL < or = 4.00 normal The total PSA value from this assay syste m is stand ardiz ed again st the WHO stand carmen. The test resul t will be appro ximat urszula 20% lower when pk red to the equim olar- stand ardiz ed total PSA (Kulkarni man Coult er). Pk rison of seria l PSA resul ts shoul d be inter prete d with this fact in mind. This test was perfo rmed using the Nanomech chemi lumin escen t metho d. Value s obtai adryan from diffe rent assay metho ds canno t be used inter rojas eably . PSA level s, regar dless of value , shoul d not be inter prete d as absol nisqually evide nce of the prese nce or absen ce of disea se. Not Available [facility] [address] [address] [place], [address], 11/20/2024 06:02:36 11/19/19 25 11/20/2024 T4, FREE T4, free 1.2 NG/dL 0.8-1. 8 normal Not Available [facility] [address] [place], [address], 11/20/2024 06:02:37 11/19/19 25 11/20/2024 TSH TSH 4.58 mIU/L 0.40-4 .50 high Not Available [facility] [address] [place], [address], 11/20/2024 06:02:38 11/16/19 24 09/18/2023 lab* No observ ation record ed. [email or web address] Not Available 2023 11:50:54 01/07/2001/06/2025 MRI, knee, w/o contr ast No observ ation record ed. [email or web address] [facility] [address], [place], [address], 01/06/2025 08:50:03 Result Notes None recorded. Problems Name Problem SNOMED Code Status Onset Date Resolution Date Notes Provider Name and Address Organization Details Recorded Time Anxiety disorder 221331379 Active Not Available [facility] 3 14:46:24 Benign prostatic hyperplasi a 565520461 Active Not Available [facility] 3 14:46:24 Pure hyperchole sterolemia 166641106 Active Not Available [facility] 3 14:46:24 Pain of right knee joint 6887529030410 00 Active 2022 Not Available [facility] 3 14:46:24 Pain of hip region 68599053 Active Not Available [facility] 3 14:46:24 Cervical radiculopa thy 07694512 Active Not Available [facility] 3 14:46:24 Fatigue 31813280 Active Not Available [facility] 3 14:46:24 Acute appendicit is 35227297 Active Not Available [facility] 3 14:46:24 Osteoarthr itis of right knee joint 5342092853667 00 Active 2022 KARON Arroyo null, [facility] 3 14:18:11 Hypothyroi dism 51632197 Active 2022 Kori Hurst CMA null, [place] [facility] 3 16:10:03 Depressive disorder 67582837 Active 2022 Kori Hurst CMA null, [place] [facility] 3 17:30:24 Essential hypertensi on 64720697 Active 2022 Kori Hurst CMA null, [facility] 3 15:50:37 Cough 62524154 Active 2022 Sheyla Quiros MD [address], [address], [place], [address] , [facility] 3 12:55:41 Disorder of prostate 62917243 Active 2023 Sheyla Quiros MD [address], [address], [place], [address] , [facility] 4 16:00:49 Colorectal cancer detected by DNA-based stool screening 105098237 Active 2023 Kori Hurst CMA null, [facility] 14:38:08 Gastroesop hageal reflux disease 156111678 Active 2024 Sheyla Quiros MD [address], [address], [place], [address] , [facility] 16:01:11 Acute bronchitis 99589401 Active 2024 Sheyla Quiros MD [address], [address], [place], [address] , [facility] 12:31:32 Problem Notes None recorded. Procedures Surgical History None recorded. Imaging Results Imaging Date Name Status LastModified by [facility] Details LastModified Time 09/18/2023 lab* completed [place] [id number] Information no t available 11/16/2023 11:50:54 01/06/2025 MRI, knee, w/o contrast completed [address] [facility] [address] [facility] [address], [place], [address], 01/06/2025 08:50:03 Procedure Notes None recorded. Medical Equipment None Reported. Medications Name Sig Start Date Stop Date Status Note LastModified by Organization Details LastModified Time benzonatate 200 mg capsule Take 1 capsule 3 times a day by oral route. 2024 active Not Available Not Available Not Avai lable lisinopril 20 mg tablet TAKE 1 TABLET BY MOUTH EVERY DAY active Not Available Not Available No t Available Zithromax Z-Marshall 250 mg tablet Take 2 TABLET EVERY DAY by oral route for 1 day then one daily 2024 active Not Available Not Available Not Avai lable levothyroxi ne 75 mcg tablet TAKE 1 TABLET BY MOUTH EVERY DAY active Not Available Not Available No t Available citalopram 20 mg tablet TAKE 1 TABLET BY MOUTH EVERY DAY active Not Available Not Available No t Available Depo-Testos terone 200 mg/mL intramuscul ar oil active Not Available Not Available Not Available tamsulosin 0.4 mg capsule TAKE 1 CAPSULE BY MOUTH EVERYDAY AT BEDTIME active Not Available Not Available No t Available Kenalog 10 mg/mL suspension for injection in office 11/07 completed ND: 0003- 0494- 20 Not Available Not Available Not Available pantoprazol e 40 mg tablet,edgar yed release TAKE 1 TABLET BY MOUTH EVERY DAY active Not Available Not Available No t Available hydrochloro thiazide 12.5 mg capsule TAKE 1 CAPSULE BY MOUTH MONDAY,,A ,MONDAY active Not Available Not Available No t Available diclofenac sodium 75 mg tablet,edgar yed release TAKE 1 TABLET BY MOUTH TWICE A DAY active Not Available Not Available No t Available methylpredn isolone 4 mg tablets in a dose pack TAKE 6 TABLETS ON DAY 1 DIRECTED ON PACKAGE AND DECREASE BY 1 TAB EACH DAY FOR A TOTAL OF 6 DAYS 05/09 completed Not Available Not Available Not Available finasteride 5 mg tablet TAKE 1 TABLET BY MOUTH EVERY DAY active Not Available Not Available No t Available Multivitami n 50 Plus tablet Take 1 tablet every day by oral route. active Not Available Not Available No t Available tadalafil 5 mg tablet TAKE 1 TO 4 TABLETS BY MOUTH DAILY active Not Available Not Available No t Available Justice 3 1000mg three daily 10/21 completed Not Available Not Available Not Available multivitami n dily 11/07 completed Not Available Not Available Not Available lidocaine (PF) 10 mg/mL (1 %) injection solution In office injection administe red by the provider 10/21 completed ND: [id number] 4276- 17 Not Available Not Available Not Available GaviLyte-G 236 gram-22.74 gram-6.74 gram-5.86 gram oral solution [employer] 05/09 completed Not Available Not Available Not Available ropivacaine (PF) 5 mg/mL (0.5 %) injection solution in office 11/07 completed [facility] [address] -[phone]- [phone] Not Available Not Available Not Available BinaxNOW COVID-19 Ag Self Test kit TEST DIRECTED TODAY --- NEED MEDICARE INFO 11/08 completed Not Available Not Available Not Available Vitals Date Recorded Body height Provider Name an d Address Organization Details Last Updated DateTime 06/12/2023 177.8 cm KARON Arroyo [facility] [employer] [facility] 06/12/2023 14:17:47 Date Recorded Body height Provider Name an d Address Organization Details Last Updated DateTime 09/11/2023 177.8 cm KARON Arroyo [facility] [employer] [facility] 09/11/2023 16:42:14 Date Recorded Body height Body mass index (BMI) Body weight Heart rate Body temperature Oxygen saturation Oxygen saturation in Arterial blood by Pulse oximetry Systolic blood pressure Diastolic blood pressure Provider Name and Address Organization Details Last Updated DateTime 4 182.88 cm 25.4 kg/m2 67280.7 7 g 67 /min 97.5 [degF] 98 % 98 % 128 mm[Hg] 74 mm[Hg] Carmen ParksKARON [place] [facility] [employer] [facility] 4 15:06:19 Date Recorded Body height Body mass index (BMI) Body weight Heart rate Body temperature Oxygen saturation Oxygen saturation in Arterial blood by Pulse oximetry Systolic blood pressure Diastolic blood pressure Provider Name and Address Organization Details Last Updated DateTime 4 182.88 cm 24 kg/m2 44357.8 5 g 54 /min 97.9 [degF] 98 % 98 % 118 mm[Hg] 74 mm[Hg] Carmen ParksKARON [facility] [employer] [facility] 4 15:33:46 Date Recorded Body height Body mass index (BMI) Body weight Heart rate Body temperature Oxygen saturation Oxygen saturation in Arterial blood by Pulse oximetry Systolic blood pressure Diastolic blood pressure Provider Name and Address Organization Details Last Updated DateTime 5 182.88 cm 23.6 kg/m2 99439.0 7 g 59 /min 97 [degF] 98 % 98 % 120 mm[Hg] 64 mm[Hg] Yesenia Renteria [place] [facility] [employer] [facility] 5 15:40:25 Social History Question Answer Notes LastModified by Organizat ion Details LastModified Time Tobacco Smoking Status Unknown If Ever Smoked Not Available [facility] 11/23/2022 14:43:35 What Is Your Level Of Alcohol Consumption? Moderate [id number] Information not available 11/23/2022 What Was The Date Of Your Most Recent Tobacco Screening? 06/22/2021 [id number] Information not available 11/23/2022 Sex: Unknown Functional Status None recorded. Mental Status None recorded. Family History Relationship Description Onset Age of this Age Resolved Age Notes LastModified by Organization Details LastModified Time Mother Heart disease [id number] Not available 11/23/2022 14:43:43 Mother Hypertensive disorder [id number] Not available 11/23/2022 14:43:43 Sister Diabetes mellitus [id number] Not available 11/23/2022 14:43:43 Notes:Mother 84 from co mplications of dementia. Father at 64 from respiratory failure and COPD. No brothers. Had three sisters. One of complications of DM and CRF. The other two sisters are living with a hx of HTN. Medical History Condition Response NERVE DISEASE N BLINDNESS N RHEUMATIC FEVER N KIDNEY STONES N BLADDER PROBLEMS N MRSA N OTHER # 1 N POLIO N LUNG DISEASE/DISORDER N HISTORY OF DRUG ABUSE N RADIATION / CHEMOTHERAPY N COPD N Other # 2 N BLOOD DISEASES N EAR OR HEARING PROBLEMS N MUMPS N SHINGLES N DEPRESSION (INCLUDING POST ) N BOWEL PROBLEMS N STROKE/TIA N ULCERS N BENIGN PROSTATIC HYPERPLASIA N MEASLES N HYPOTENSION N MYOCARDIAL INFARCTION N OBESITY N GERD/NAUSEA N ANEURYSM N URINARY/BLADDER/KIDNEY PROBLEMS Y CORONARY ARTERY DISEASE (CAD) N ADDICTION CONCERNS N Impotence N ENDOMETRIOSIS N USE OF BLOOD THINNERS N SKIN PROBLEMS N GASTROINTESTINAL DISORDER N PERIPHERAL VASCULAR DISEASE N MUSCLE,JOINT OR BONE PROBLEMS N GASTROINTESTINAL BLEEDING N BLOOD CLOTS N ASTHMA N CATARACTS N ERECTILE DYSFUNCTION N VARICOSITIES N GI PROBLEMS N Low Testosterone N INFERTILITY N AIDS/HIV N CHEMOTHERAPY / RADIATION N LIVER DISEASE N MALE HYPOGONADISM N HYPERTENSION Y Deficiency N TOURETTE'S N ANXIETY DISORDER Y BLOOD TRANSFUSION N ANEMIA/BLOOD DISORDER N CHRONIC EAR INFECTIONS N BRONCHITIS N TUBERCULOSIS N GLAUCOMA N FOOT PROBLEM N DIVERTICULITIS N SLEEP APNEA N CHICKENPOX N INFECTIOUS DISEASE N PROSTATE N HEART ARRHYTHMIA N INSOMNIA N HIGH CHOLESTEROL / HYPERLIPIDEMIA Y EYE PROBLEMS N HYPERTHYROIDISM N EDEMA N CHRONIC PAIN SYNDROME N HYPOTHYROIDISM N CAROTID BLOCKAGE N CONSTIPATION N BACK / NECK PROBLEMS Y HAVE YOU BEEN HOSPITALIZED OR SEEN IN [facility] ER IN THE PAST YEAR ? N ATHEROSCLEROSIS N BREAST PROBLEMS N DIALYSIS N ECZEMA N OSTEOPOROSIS N ARTHRITIS N NO SIGNIFICANT PAST MEDICAL HISTORY N APPENDICITIS N DIABETES, TYPE N BAD TEETH N ENT N HEARTBURN / REFLUX N AUTISM SPECTRUM DISORDER (ASD) N HEPATITIS / LIVER DISEASE N GOUT N SLEEP DISORDER N ALZHEIMER'S DISEASE N Brain Problems N DEMENTIA N HERPES N SEIZURES/EPILEPSY N HEADACHES/MIGRAINES N VASCULAR DISEASE N PACEMAKER N Blood Disorder N DIZZINESS N HEART DISEASE/HEART PROBLEMS N KIDNEY DISEASE N MULTIPLE SCLEROSIS N CANCER: SPECIFY N CARDIAC ARRHYTHMIA N ATRIAL FIBRILLATION N Gall Stones N PULMONARY EMBOLISM N AUTOIMMUNE DISEASE N Immunizations Vaccine Type Date Status Note Provider Nam e and Address Organization Details Recorded Time COVID-19 Non-[place] Vaccine, Product Unknown 10/20/2020 completed Not Available [facility] 3 14:49:39 COVID-19 Non-US Vaccine, Product Unknown 09/29/2020 completed Not Available [facility] 3 14:49:39 Past Encounters Encounter ID Performer Location Encounter Start Date Encounter Closed Date Diagnosis/Indication Diagnosis SNOMED-CT Code Diagnosis ICD10 Code Diagnosis Note [id number] Sheyla Quiros MD [facility] Internal Med [address] [place] [address] 05/11/2021 00:00:00 05/11/2021 11:44:56 [id number] Ceasar Brown MD [facility] [place] [address] [place] [address] 06/22/2021 00:00:00 06/22/2021 12:38:55 [id number] Miki Ashraf MD [facility] [place] [address] [place] [address] 10/21/2022 00:00:00 10/21/2022 12:10:37 [id number] Sheyla Quiros MD [facility] Internal Med [address] [facility] [place] [address] 11/08/2022 00:00:00 11/08/2022 12:04:19 [id number] Miki Ashraf MD [facility] [place] [address] [place] [address] 01/04/2023 08:21:43 01/04/2023 09:18:57 Pain of right knee joint 1016404774 19057 M25.561 [id number] Miki Ashraf MD [facility] [place] [address] [place] [address] 04/07/2023 09:27:10 04/07/2023 14:08:14 Pain of right knee joint 9225750255 20491 M25.092 [id number] Miki Ashraf MD [facility] [place] [address] [place] [address] 06/12/2023 14:15:12 06/12/2023 14:42:12 Osteoarthritis of right knee joint 9353921641 97784 M17.11 [id number] Miki Ashraf MD [facility] [place] [address] [place] [address] 09/11/2023 16:31:58 09/20/2023 15:17:08 Osteoarthritis of right knee joint 8407694249 32222 M17.11 [id number] Sheyla Quiros MD [facility] Internal Med [address] [place] [address] 11/10/2023 14:56:08 11/10/2023 16:17:34 Adult health examination 504581059 Z00.00 Depression screening 171 329337 Z13.31 Essential hypertension 05567611 I10 Hypothyroidism 23823482 E03.9 Pure hypercholesterolemia 976207193 E78.00 Benign pro static hyperplasia 736371294 N40.0 Disorder of prostate 302 11464 N42.9 [id number] Sheyla Quiros MD [facility] Internal Med [address] [address] 05/09/2024 15:13:28 05/09/2024 16:17:53 Essential hypertension 14465630 I10 Hypothyroidism 99809637 E03.9 Benign pro static hyperplasia 567333212 N40.0 Anxiety disorder 8597257 06 F41.9 [id number] Sheyla Quiros MD [facility] Primary Care [facility] [address] [facility] [address] [place] [address] 11/07/2024 15:20:50 11/07/2024 16:12:55 Essential hypertension 07502849 I10 Hypothyroidism 65236810 E03.9 Pure hypercholesterolemia 754101257 E78.00 Gastroesop hageal reflux disease 316378527 K21.9 Disorder of prostate 302 10548 N42.9 Health Concerns Section Related Observation LastModified by Organization Detai ls LastModified Time None Recorded Concern Status LastModified by Organization Details LastModified Time None Recorded Advance Directives Directive None Recorded Payers Encounter Date Sequence Insurance Name Policy Number Policy Jha Covered Member ID Jha Member ID Guarantor Name 06/12/2023 1 [place] Allen Plummer Micah [id number] Allen [place] Ob[place] 06/12/2023 2 [employer] (MEDICARE SUPPLEMENT) Allen Plummer Micah [id number] Allen Plummer Obrien 09/11/2023 1 [place] Allen Plummer Micah [id number] Allen [place] Ob[place] 09/11/2023 2 [employer] (MEDICARE SUPPLEMENT) Allen Plummer Micah [id number] Allen [place] Micah 11/10/2023 1 [place] Allen Plummer Micah [id number] Allen [place] Micah 11/10/2023 2 [employer] (MEDICARE SUPPLEMENT) Allen Plummer Micah [id number] Allen [place] Ob[place] 05/09/2024 1 [place] Allen Plummer Micah [id number] Allen Plummer Obrien 05/09/2024 2 [employer] (MEDICARE SUPPLEMENT) Allen Plummer Micah [id number] Allen Plummer Micah 11/07/2024 1 [place] Allen Plummer Micah [id number] Allen Plummer Obrien 11/07/2024 2 [employer] (MEDICARE SUPPLEMENT) Allen [place] Micah [id number] Allen [place] Micah Notes Date Note Type Note Provider Name and Address Organization Details Recorded Time 3 text/htm l patient returns. He is here to discuss the option of total knee replacement for his right knee. He had a cortisone shot last 3 months ago. He had good relief. He went on a trip to [place] and for several days 6 days straight he averaged 28,000 steps per day. His foot bothered him actually but his knees did not. He states overall he does not have much pain dull and it is rare he feels any pain. He does note that sometimes his gait is abnormal and he will pronate more with gait he suspects to protect the right knee from increased stresses. He is sleeping well. He is currently taking diclofenac 1 tablet per day. He has no difficulty with stairs or with longer walks. Is x-rays from September showed severe medial compartment osteoarthritis in the right knee. Miki Ashraf MD [address] [place] [address], [address], [place], [address], [place] [facility] 09/19/2023 17:16:49 4 text/htm l Patient Name: Allen Tucker Of Service: Monday ( 11.10.2023 ): 1955 Age: 68 There has been approximately a 3 lb weight gain since 11/08/2022. This represents approximately a 1.6% change in weight. Weight change attributable to lifestyle changes. Vital Signs:Blood Pressure: Sitting Rt. Arm 128/74Pulse: Sitting 67 /min and RegularRespiratory Rate: 12Height 72 in or 1.8 mWeight 187 lb or 84.8 kgBMI 25.4Temperature: 97.5 F or 36.4 CPulse Oximetry: 98 % at rest on no oxygen Chief Complaint: Addressed in HPI Problems or conditions discussed in the HPI were the only ones reviewed during the encounter.Only social and family history addressed in the HPI were reviewed during this encounter. Attendant(s): NoneConstitutional and Systemic Symptoms:none Medication Reconciliation: from medication list. Xxmntrruspo90/28/2023: Screening study abdominal aorta shows no abdominal aortic aneurysm. Diameter of the abdominal aorta is 2.1 cm. History of Present Illness In for a well patient check up. Last well patient evaluation was approximately one year. No interval complaints of any new major medical problems. No hx of any chest pain, shortness of breath, nausea, vomiting, diarrhea or constitutional symptoms.PSA orderedColonoscopy or Cologuard: not dueImmunizations Up To Date or refuses to takeNo Significant Change In Family HxFall Risk normalDepression Score: 0Hearing normalVisual normalReviewed Smoking and Drug HistoryReviewed Immunization HistoryInstructed on importance of weight on diabetes, heart and other diseases aggravated by obesity.Instructed on importance of weight on diabetes, heart and other diseases aggravated by obesity. #1. Essential Hypertension: Stage: normal Interval Neurological Complaints no headaches, dizziness, weakness, visual changes, ataxia, aphasia and apraxia. No shortness of breath, orthopnea or cardiovascular symptoms. No other symptoms related to end organ damage. Pressure has been under fair control. Currently normal. No other end organ symptoms or findings. Therapy reviewed regarding management of hypertension and includes salt restriction and Hydrochlorothiazide and Lisinopril. #2. History of hypercholesterolaemia: History of the high cholesterol. Not taking any medications and being controlled by diet. No interval complaints of any chest pain, shortness of breath, orthopnea or other cardiovascular complaints. Last lipid panel: fair control #3. Hx of hypothyroidism currently stable. Heat intolerance: no Fatigue: no Weight gain: no Difficulty concentrating: yes Muscle Symptoms: none Skin Texture: normal Skin Color: normal Currently taking synthroid. #4. Hx of BPH currently stable. No change in strength or initiation of urinary stream. No post voiding problems. No hx of any fever or chills. Currently taking Tamsulosin Hydrochloride and Proscar. Active Medication ListProscar 5 MG TABLET, FILM COATED One Daily HsCelexa 20 MG (TABLET - ORAL) One DailyHydrochlorothiazide 12.5 MG One Monday, Monday And MondayLisinopril 20 MG (TABLET - ORAL) One Daily For HtnOmega-3 1000 Mg BidTamsulosin Hydrochloride .4 MG CAPSULE One DailyLevothyroxine .075 MG TABLET One Daily Vaccination and Cnpqvwmhgpiy4869-19 Covid [facility] Mywvvce2174-58 Bilateral Eotswnipu6099-34 Lt. Retinal Dnxldceaxgb3107-74 Rt. Retinal Detachment Scleral Npfkkygz5612-84 Appendectomy Preventative Testing Confirmed by Our Vcfptvd8511/14/2022 ALBUMIN 4.0 G/DL N011/14/2022 PSA 0.15 NG/ML N011/26/2015 [facility] Social HistoryDoes not smoke. Drinks socially. 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 Family HistoryMother 84 from complications of dementia. Father at 64 from respiratory failure and COPD. No brothers. Had three sisters. One of complications of DM and CRF. The other two sisters are living with a hx of HTN. Sheyla Quiros MD [address] [facility], [facility] [address], [place], [address], [facility] [employer] 11/10/2023 16:01: 4 text/htm l Patient Name: Allen Tucker Of Service: April ( 05.09.2024 ): 1955 Age: 68 There has been approximately a 10 lb weight loss since 11/10/2023. This represents approximately a 5.3% change in weight. Weight change attributable to lifestyle changes. Vital Signs:Blood Pressure: Sitting Rt. Arm 118/74Pulse: Sitting 54 /min and RegularRespiratory Rate: 14Height 72 in or 1.8 mWeight 177 lb or 80.3 kgBMI 24.0Temperature: 97.9 F or 36.6 CPulse Oximetry: 98 % at rest on no oxygen Chief Complaint: Addressed in HPI Problems or conditions discussed in the HPI were the only ones reviewed during the encounter.Only social and family history addressed in the HPI were reviewed during this encounter. Attendant(s): NoneConstitutional and Systemic Symptoms:none Medication Reconciliation: from medication list. Upmnxvhaluy43/28/2023: Screening study abdominal aorta shows no abdominal aortic aneurysm. Diameter of the abdominal aorta is 2.1 cm. History of Present Illness #1. Essential Hypertension: Stage: Stage I Interval Neurological Complaints no headaches, dizziness, weakness, visual changes, ataxia, aphasia and apraxia. No shortness of breath, orthopnea or cardiovascular symptoms. No other symptoms related to end organ damage. Pressure has been under excellent control. Currently normal. No other end organ symptoms or findings. Therapy reviewed regarding management of hypertension and includes salt restriction and Hydrochlorothiazide and Lisinopril. #2. Hx of hypothyroidism currently stable. Heat intolerance: no Fatigue: no Weight gain: no Difficulty concentrating: no Muscle Symptoms: none Skin Texture: normal Skin Color: normal Currently taking synthroid. #3. Hx of BPH currently stable. No change in strength or initiation of urinary stream. No post voiding problems. No hx of any fever or chills. Currently taking Proscar and Tamsulosin Hydrochloride. #4. Anxiety Disorder: History of anxiety disorder. There has been no panic attacks. No interval complaints of any vegetative or other signs of depression. Taking Celexa. Discussed possibility of decreasing and weaning off medication. Feels that current regimen is working fine and wishes not to change the current treatment regimen. Medication not causing any sedation or cognitive dysfunction and there is no contraindication to continue current therapy. Active Medication ListProscar 5 MG TABLET, FILM COATED One Daily HsCelexa 20 MG (TABLET - ORAL) One DailyHydrochlorothiazide 12.5 MG One Monday, Monday And MondayLisinopril 20 MG (TABLET - ORAL) One Daily For HtnOmega-3 1000 Mg BidTamsulosin Hydrochloride .4 MG CAPSULE One DailyLevothyroxine .075 MG TABLET One Daily Vaccination and Wqvgzvrkowlb4334-41 [facility] Bxbmcbv3443-04 Bilateral Jrkgchfkm2245-15 Lt. Retinal Jgwlpardtox8332-23 Rt. Retinal Detachment Scleral Odjryhic6481-49 Appendectomy Preventative Testing( ) 12/20/2023 Colonoscopy ( 10 Years ) 12/19/2033( ) 11/30/2023 Albumin 3.9 G/DL N( ) 11/30/2023 PSA 0.17 NG/ML N 11/29/2025( ) 11/26/2015 [facility] Social HistoryDoes not smoke. Drinks socially. 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 Family HistoryMother 84 from complications of dementia. Father at 64 from respiratory failure and COPD. No brothers. Had three sisters. One of complications of DM and CRF. The other two sisters are living with a hx of HTN. Sheyla Quiros MD [address] [place] [address], [phone], [facility] 05/09/2024 16:13:38 5 text/htm l Patient Name: Allen Tucker Of Service: October ( 11.07.2024 ): 1955 Age: 69 There has been approximately a 3 lb weight loss since 05/09/2024. This represents approximately a 1.7% change in weight. Weight change attributable to lifestyle changes. Vital Signs:Blood Pressure: Sitting Rt. Arm 120/64Pulse: Sitting 59 /min and RegularRespiratory Rate: 16Height 72 in or 1.8 mWeight 174 lb or 78.9 kgBMI 23.6Temperature: 97 F or 36.1 CPulse Oximetry: 98 % at rest on no oxygen Chief Complaint: Addressed in HPI Problems or conditions discussed in the HPI were the only ones reviewed during the encounter.Only social and family history addressed in the HPI were reviewed during this encounter. Attendant(s): NoneConstitutional and Systemic Symptoms:none Medication Reconciliation: from medication list. Flwckcdrdis53/28/2023: Screening study abdominal aorta shows no abdominal aortic aneurysm. Diameter of the abdominal aorta is 2.1 cm. History of Present Illness #1. Essential Hypertension: Stage: Stage I Interval Neurological Complaints no headaches, dizziness, weakness, visual changes, ataxia, aphasia and apraxia. No shortness of breath, orthopnea or cardiovascular symptoms. No other symptoms related to end organ damage. Pressure has been under excellent control. Currently normal. No other end organ symptoms or findings. Therapy reviewed regarding management of hypertension and includes salt restriction and Lisinopril. #2. Hx of hypothyroidism currently stable. Heat intolerance: no Fatigue: no Weight gain: no Difficulty concentrating: no Muscle Symptoms: none Skin Texture: normal Skin Color: normal Currently taking synthroid. #3. Type II Hypercholesterolaemia: Currently taking medication and tolerating well. No interval complaints of any muscle pain or arthralgia. No significant liver changes with medications. Last lipid panel: fair control. Therapy reviewed regarding treatment of cholesterol management and include diet and Lisinopril. #4. Hx of esophageal reflux currently stable. Hx of Complications: none The severity, duration and intensity of symptoms have improved. Frequency: most meals Treatment consists medications taken on no regular basis. Current therapy includes no medication. There has been no nausea, eructation, vomiting, hematemesis, dysphagia, velopharyngeal insufficiency and odynophagia. No change in he frequency or intensity of symptoms. Has had no melena. Has had no . Discussed use of H2 antagonists NA. Active Medication ListProscar 5 MG TABLET, FILM COATED One Daily HsCelexa 20 MG (TABLET - ORAL) One DailyHydrochlorothiazide 12.5 MG One Monday, Monday And MondayLisinopril 20 MG (TABLET - ORAL) One Daily For HtnOmega-3 1000 Mg BidTamsulosin Hydrochloride .4 MG CAPSULE One DailyLevothyroxine .075 MG TABLET One DailyDiclofenac Sodium 75 MG TABLET, DELAYED RELEASE One Twice A Day As Needed Vaccination and Immunization(X) 2020-09 [employer] [facility] Seldqun4405-46 Bilateral Thmrujawo6307-95 Lt. Retinal Pqmuafzayho9008-57 Rt. Retinal Detachment Scleral Zwjizrjr5069-05 Appendectomy Preventative Testing( ) 12/20/2023 Colonoscopy ( 10 Years ) 12/19/2033( ) 11/30/2023 Albumin 3.9 G/DL N( ) 11/30/2023 PSA 0.17 NG/ML N 11/29/2025( ) 11/26/2015 [facility] Social HistoryDoes not smoke. Drinks socially. 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 Family HistoryMother 84 from complications of dementia. Father at 64 from respiratory failure and COPD. No brothers. Had three sisters. One of complications of DM and CRF. The other two sisters are living with a hx of HTN. TEST RESULT RANGE UNITSCBC (INCLUDES DIFF/PLT) Date: 11/30/2023WHITE BLOOD CELL COUNT 6.8 3.8-10.8 THOUSAND/ULHEMOGLOBIN 13.2 13.2-17.1 G/DLHEMATOCRIT 40.5 38.5-50.0 %PLATELET COUNT 251 140-400 THOUSAND/ULCOMPREHENSIVE METABOLIC PANEL Date: 11/30/2023SODIUM 139 135-146 MMOL/LPOTASSIUM 4.4 3.5-5.3 MMOL/LGLUCOSE 88 65-99 MG/DLUREA NITROGEN (BUN) 20 7-25 MG/DLCREATININE 1.08 0.70-1.35 MG/DLEGFR 76 > OR = 60 ML/MIN/1.82T8RBRJQSS 9.0 8.6-10.3 MG/DLBILIRUBIN, TOTAL 0.7 0.2-1.2 MG/DLALKALINE PHOSPHATASE 53 35-144 U/LAST 19 10-35 U/LALT 14 9-46 U/LLIPID PANEL, STANDARD Date: 4CHOLESTEROL, TOTAL 201 <200 MG/DLHDL CHOLESTEROL 48 > OR = 40 MG/DLTRIGLYCERIDES 142 <150 MG/DLLDL-CHOLESTEROL 128 MG/DL (CALC)PSA, TOTAL Date: 4PSA, TOTAL 0.17 < OR = 4.00 NG/MLT4, FREE Date: 11/30/2023T4, FREE 1.2 0.8-1.8 NG/DLTSH Date: 11/30/2023TSH 1.83 0.40-4.50 MIU/L Sheyla Quiros MD [address] [facility] [facility] [address], [place], [address], [place] [facility] 11/07/2024 16:06:30
--- OUTSIDE RECORDS SUMMARY | 2025-01-23 14:13 | XMS_ITS | Clinical Summary ---
Author Organization [facility] [employer] Address [address] [place] [address] Care Team Providers Care Technical Services Representative Name Role Phone Will Quiros MD Primary Care Provider [phone] Source Comments [facility] Affiliates and Associated Physician Practices is amultiple site organization consisting of ambulatory clinics and hospital sitesin [place], [place], [place] and [place]. This disclosure is being madepursuant to the Care Everywhere program and may not contain all information available regarding this patient. Last updated 18.[facility] [employer] Social History Tobacco Use Types Packs/Day Years Used Date Smoking Tobacco: Never Assessed Sex and Gender Information Value Date Recorded Sex Assigned at Not on file Legal Sex Male 7:08 PM CDT Gender Identity Not on file Sexual Orientation Not on file Last Filed Vital Signs Vital Sign Reading Time Taken Comments Blood Pressure 148/86 02/16/2020 7:26 PM CDT Pulse 65 02/16/2020 8:42 PM CDT Temperature 37 C (98.6 F) 02/16/2020 7:11 PM CDT Respiratory Rate 14 02/16/2020 8:42 PM CDT Oxygen Saturation 100% 02/16/2020 8:42 PM CDT Inhaled Oxygen Concentration - - Weight 81.6 kg (180 lb) 02/16/2020 7:11 PM CDT Height 182.9 cm (6') 02/16/2020 7:11 PM CDT Body Mass Index 24.41 02/16/2020 7:11 PM CDT Plan of Treatment Health Maintenance Due Date Last Done Comments COLOGUARD (AGES 45-75) - COL ON CA SCREENING 1955 COLON MONITORING 1955 COLONOSCOPY - COLON CA SCREENING 1957 CT COLONOGRAPHY - COLON CA SCREENING 1955 Colorectal Cancer Screening 1955 FIT - COLON CA SCREENING 1955 FLEX SIG - COLON CA SCREENING 1955 LIPID TESTING 1955 HEPATITIS C SCREENING 07/19/1975 DTAP/TDAP/TD VACCINES (1 - Tdap) 1976 PNEUMOCOCCAL VACCINE 50+ (1 of 1 - PCV) 2007 ZOSTER VACCINE (1 of 2) 2007 COVID-19 VACCINE (1 - 2023-2 5 season) 2024 DEPRESSION SCREENING 09/25/2024 INFLUENZA VACCINE (Season Ended) 2025 Respiratory Syncytial Virus (RSV) Vaccine Pt: or over 60 yrs (1 - 1-dose 75+ series) 2032 HEPATITIS B VACCINE Aged Out No longe r eligible based on patient's age to complete this topic HIB VACCINE Aged Out No longer eligi ble based on patient's age to complete this topic HPV VACCINE Aged Out No longer eligi ble based on patient's age to complete this topic MENINGOCOCCAL (Group B) VACC INE SHARED DECISION-MAKING Aged Out No longer eligibl e based on patient's age to complete this topic MENINGOCOCCAL GROUPS A/C/Y/W VACCINE Aged Out No longer eligible b ased on patient's age to complete this topic Insurance [facility] Care Teams Technical Services Representative Relationship Specialty Start Date End Date Will Quiros MD [address] [place] [address] [address] [place] [address] PCP - General Internal Medicine 02/16/20
--- NOTE | 2025-01-23 15:03 | ECG_ITS ---
Test Date: 2025-01-23 15:14:27 Measurements Intervals [place] Rate: 51 P: 61 PA: 146 QRS: 44 QRSD: 104 T: 52 QT: 432 QTc: 398 Interpretive Statements SINUS BRADYCARDIA No previous ECG available for comparison Electronically Signed On 01-24-2025 18:59:47 CDT by Marisela Crum
[2025-01-23 15:26] LABS: Basophils Percent Auto 0.5 % (0.2-1.2); Eosinophils Absolute Auto 0.2 K/mm3 (0-0.3); Hematocrit 39.8 % (42.0-52.0); Hemoglobin 12.7 g/dL (14.0-18.0); Immature Granulocyte Absolute 0.03 K/mm3 (0.00-0.031); Immature Granulocyte Percent A 0.4 % (0-0.5); Lymphocytes Absolute Auto 2.25 K/mm3 (0.9-3.2); Lymphocytes Percent Auto 30.2 % (18.3-44.2); Mean Corpuscular HGB Conc 31.9 g/dl (32-36); Mean Corpuscular Hemoglobin 30.2 pg (26-34); Mean Corpuscular Volume 94.8 fl (80-100); Mean Platelet Volume 10.9 fl (7.4-10.4); Monocytes Absolute Auto 0.7 K/mm3 (0.1-0.6); Monocytes Percent Auto 9.4 % (2.6-8.5); Neutrophils Absolute Auto 4.3 K/mm3 (1.3-6.7); Neutrophils Percent Auto 57.5 % (45.5-73.1); Platelet Count Result 288 k/mm3 (150-375); Red Cell Distribution Width 13.1 % (11.5-14.5); White Blood Count 7.5 K/mm3 (4.5-10.0)
[2025-01-23 15:36] LABS: Albumin Level 4.1 g/dL (3.5-5.1); Anion Gap 6 mmol/L (4-12); Blood Urea Nitrogen 23 mg/dL (9-20); Calcium 8.9 mg/dL (8.4-10.2); Carbon Dioxide 30 mmol/L (22-30); Chloride 101 mmol/L (98-107); Estimated Glomerular Filt Rate > 60; Glucose 84 mg/dL (65-110); Potassium 4.2 mmol/L (3.4-5.0); Sodium 137 mmol/L (137-145)
[2025-01-23 16:54] LABS: Hemoglobin A1C 5.4 % (<5.7)
[2025-01-23 17:21] LABS: Urine Cotinine NEGATIVE
== END 2025-01-23 13:07 | disposition home or self-care (01) ==
PROVIDERS: PCP Internal Medicine; Visit Provider Orthopaedic Surgery
DX: Z01.818 Encounter for other preprocedural examination (principal); M17.11 Unilateral primary osteoarthritis, right knee; R00.1 Bradycardia, unspecified
CPT/HCPCS: 80048; 80307; 82040; 83036; 85025; 87081; 93005

== ENCOUNTER 2025-02-13 00:55 | Day surgery (SDC) | payer MEDICARE, OTHER, SELFPAY ==
[2025-01-23 14:07] VITALS: BP 111/58; PULSE 59; RESP 16; TEMP 36.7; O2SAT 98; BMI 23.3
--- NOTE | 2025-01-23 14:13 | PC.NURSE ---
Report to the Outpatient Waiting Room, entrance under the green pavilion located off [facility], at time __9:30AM on date ___02/13/25____. Planned Procedure Time: __11:30AM .? Time changes happen often and if your time is changed the preop area will call you the afternoon before. - You and your visitor will be asked to self-screen and do not enter if you have any COVID symptoms. Please call surgeon if you need to reschedule. - A mask is optional within the hospital at this time. Patients may have clear liquids (water, carbonated beverages, clear teas, apple juice) until 3 hours prior to surgery (8:30AM) with a maximum of 20 ounces. - No food from midnight until time of surgery and no smoking, or chewing tobacco (or any form of nicotine). No chewing gum, candy or mints. Take only the following medications with a SIP of water on the morning of surgery: __CITALOPRAM, LEVOTHYROXINE DO NOT STOP ANY OF YOUR OTHER PRESCRIPTION MEDICATIONS PRIOR TO SURGERY EXCEPT THE FOLLOWING Hold all vitamins and supplements for 3 days per anesthesiologist.-LAST DOSE 02/09/25 Medications to discontinue per physician ___HOLD NSAIDS AND FISH OIL 7 DAYS PRE-OP PER DR COLBERT Date to take last dose 02/05/25 Please no make-up, nail turkmen, hairspray, perfume, deodorant, or body powder the day of surgery.? No jewelry (including any body piercings) or valuables the day of surgery, leave them at home.? Please take a shower or bath the night before, or the morning of, surgery with an antibacterial soap.? Wear comfortable, loose fitting clothing.? - Jewelry must be removed prior to entering the operating room.? Rings and piercings that are not removed may be cut off. - The hospital will not accept responsibility for valuables.? - Please leave all valuables, including medications, at home the day of surgery. If you are going home after surgery, a licensed fuel oil truck driver must drive you home.? - NO public transportation without another adult if you receive anesthesia. - We recommend that an adult stay with you for 24 hours following discharge. - We also recommend that you do not drive, make important decision, drink alcoholic beverages, or take any drugs that were not prescribed by your health care provider for at least 24 hours after your discharge time. Follow any additional instructions given to you from your surgeon. Telephone instructions given to ____PATIENT and asked if any additional questions and then verbalized understanding. Patient advised to call surgeon office or pre surgery nurse liaison [phone] if any additional questions.
--- NOTE | 2025-02-12 12:35 | PM.IMHP ---
H&P: HPI History of Present Illness Date/Time: 02/12/25 12:35 Chief Complaint: Right knee DJD Narrative: 69-year-old male who presents today for a right Mccleary partial knee replacement versus right total knee arthroplasty. Patient has been having symptoms in the right knee for over year and a half. He has been on diclofenac 75 mg b.i.d.. This helps somewhat. At this point he is only taking Aleve twice a day. Patient does have crto-ie-qzhj osteoarthritis in medial compartment of the right knee. He is still very active, however the arthritis in his knee is affecting his daily lifestyle and activity level. Patient feels this point he would rather proceed with surgical intervention on the knee rather than continue nonsurgical treatment. Review of Systems Review of Systems: All systems reviewed & are unremarkable except as noted in HPI and below PMFSH Past Medical History Medical History Hypothyroidism History of gastroesophageal reflux (GERD) History of hypertension Surgical History Surgical History History of eye surgery History of appendectomy Social History Social History Smoking status: Never smoker Alcohol intake: current Drinks per week: 8 Substance use type: does not use Do You Feel Safe in your Home?: Yes Lack of Transportation: No Lack of Food: Never True Current Housing: I Have Housing Concerned About Future Housing: No Difficulty Paying Gas/Electric Bills: No Difficulty Paying for Meds: No Currently Unemployed: No Education: Bachelor's Degree Difficulty w/ Childcare or Family Care: No Living arrangements: with family Additional living arrangements comments: [facility]- Spiritual care concerns: No Meds Home Medications and Allergies Home Medications ?Medication ?Instructions ?Recorded ?Confirmed ?Type citalopram 20 mg tablet 20 mg PO DAILY 02/16/20 01/23/25 History hydrochlorothiazide 12.5 mg capsule See Rx Instructions .Route .COMPLEX 02/16/20 01/23/25 History lisinopril 20 mg tablet 20 mg PO DAILY 02/16/20 01/23/25 History finasteride 5 mg tablet 5 mg PO DAILY 12/07/23 01/23/25 History levothyroxine 75 mcg tablet 75 mcg PO DAILY 12/07/23 01/23/25 History pantoprazole 40 mg tablet,delayed 40 mg PO DAILY 12/27/24 01/23/25 History release tamsulosin 0.4 mg capsule 0.4 mg PO DAILY 01/10/25 01/23/25 History ibuprofen 200 mg capsule 600 mg PO Q6H PRN pain 01/23/25 01/23/25 History cngsiqqy-tv-jjbns 300 mcg-K 60 1 tablet PO DAILY 01/23/25 01/23/25 History mcg-lycop 600 mcg-lutein 300 mcg tablet omega 2-vka-erl-fish oil 1,200 mg 1 cap PO DAILY 01/23/25 01/23/25 History (144 mg-216 mg) capsule (Fish Oil) Allergies Allergy/AdvReac Type Severity Reaction Status Date / Time shellfish derived Allergy FACIAL Verified 01/23/25 13:56 SWELLING Exam Narrative: 69-year-old male alert pleasant. He is 6 ft tall and 179 lb BMI is 24.3. He has a mild varus thrust when he walks. No obvious limp. Range of motion right knee is from 2-140 degrees. Normal stability, negative Melva's. No effusion in the knee. No medial lateral joint line tenderness. No pain with patellofemoral grind. Normal quad strength. Hip range of motion is full without discomfort, negative Stinchfield maneuver. 2+ dorsalis pedis pulse palpable. Normal sensation to the right lower extremity no edema in lower extremity. Resp: Auscultation: clear to auscultation bilaterally Cardio: Rate: regular rate Rhythm: regular rhythm Assessment and Plan Assessment and plan (1) Osteoarthritis of right knee: Qualifiers: Osteoarthritis type: primary Qualified Code(s): M17.11 - Unilateral primary osteoarthritis, right knee Code(s): M17.11 - Unilateral primary osteoarthritis, right knee Status: Acute Assessment and Plan: 69-year-old male who has medial compartment osteoarthritis the right knee with continued symptoms over the last 18 months. Again patient like to proceed with surgery at this point. Patient has been evaluated and is felt to be a good candidate for an Mccleary partial knee replacement. Surgical procedures well as risks and complications were discussed in detail and patient would like to proceed patient will avoid any anti-inflammatories or aspirin products 1 week prior to surgery. He will see his primary care doctor for pre-surgical clearance. His nasal swab was negative. Hemoglobin is 12.7 and platelets were 2 radiate. His Chem panel was all within normal limits creatinine 1.08.
[2025-02-13] VITALS (10 sets, daily range): BP systolic 106–157; BP diastolic 49–79; PULSE 53–75; RESP 12–20; TEMP 36.1–37.1; O2SAT 98–100
--- NOTE | ~2025-02-13 | XR_ITS ---
EXAMINATION: KNEE ONE/TWO VIEW-RIGHT DATE: 02/13/2025 16:43 INDICATION: Postoperative evaluation following right knee medial unicompartmental arthroplasty TECHNIQUE: Anteroposterior and lateral views of the right knee were obtained. COMPARISON: None. FINDINGS: Right knee medial unicompartmental arthroplasty appears well seated and in near anatomic alignment. No fractures identified. Expected postoperative subcutaneous and intra-articular gas. IMPRESSION: 1. Right knee medial unicompartmental arthroplasty, negative for postoperative purposes. Reviewed, dictated and finalized at location A.
--- NOTE | ~2025-02-13 | XR_ITS ---
INTRAOPERATIVE IMAGING: CLINICAL HISTORY: 69 years old Male; INTRA OP Partial knee replacement PROCEDURE COMMENTS: Limited intraoperative fluoroscopy of the right knee was performed. CUMULATIVE DOSE: 2.2 mGy FLUOROSCOPY TIME: 1 minute 49 seconds FINDINGS/IMPRESSION: Please refer to operative note for further details. Reviewed, dictated and finalized at location A.
--- OUTSIDE RECORDS SUMMARY | 2025-02-13 01:00 | XMS_ITS | Data Portability ---
Author Organization [place] [facility] [employer] [facility], Main Office Address [address] [place] [address] Care Team Providers Care Advertising Specialist Name Role Phone SHEYLA QUIROS Primary Care Provider SHEYLA QUIROS Referring Provider Assessment Encounter Date Assessment Date Assessment LastModified by Organization Details LastModified Time 09/11/2023 09/11/2023 Impression: Patient has radiographically severe [...] knee replacement partial knee replacement and the [place] booklet. I have offered him a cortisone [...] more than half the time spent in toks-ji-socj care. Not available 09/19/2023 17:16:37 Plan of Treatment Reminders Order Date Submit Date Provider Last Modified By Organization Details Last Modified Time Details Appointments None recorded. Lab PSA, serum or plasma 2024 025 [facility], [address] [facility], [place], [address], 09:41:20 CBC w/ auto diff 2024 025 [email or web address] [facility], [address], [place], [address], 5 09:41:19 CMP, serum or plasma 2024 025 [email or web address] [facility], [address], [place], [address], 5 09:41:19 TSH, serum or plasma 2024 025 [email or web address] [facility], [address], [place], [address], 5 09:41:20 T4, free, serum 2024 025 [facility], [address], [place], [address], 5 09:41:20 lipid panel, serum 2024 025 [email or web address] [facility], [address], [place], [address], 5 09:41:20 PSA, serum or plasma 2023 024 [email or web address] [facility], [address], [place], [address], 4 12:31:12 CBC w/ auto diff 2023 024 [email or web address] [facility], [address], [place], [address], 4 12:31:10 CMP, serum or plasma 2023 024 [email or web address] [facility], [address], [place], [address], 4 12:31:11 TSH, serum or plasma 2023 024 [email or web address] [facility], [address], [place], [address], 4 12:31:11 T4, free, serum 2023 024 [email or web address] [facility], [address] [facility], [place], [address], 4 12:31:11 lipid panel, serum 2023 024 [email or web address] [facility], [address] [facility], [place], [address], 4 12:31:11 Referral None recorded. Procedures None recorded. Surgeries None recorded. Imaging None recorded. Medication Orders Protonix 40 mg tablet,del ayed release 2024 025 [facility] #[id number], [address] [place], [address], 5 16:06:16 Patient TargetsNo targets recorded. Patient Instructions Encounter Date Encounter Id Patient Instructions Last Modified By Organization Details Last Modified Time 11/10/2023 [id number] risk assessment* FIGUEROA Not availabl e 11/10/2023 16:32:09 Personalized [facility] lt Plan and Screening Recommendations Advance Directives - Do you have one? Yes Advance Directives - Do we have your advance directive on file in your health record? No, please bring in a copy at your earliest convenience Primary Prevention/Intervent ion (prevents or decreases the chance of common [...] Risk Intermediate Risk I have no recommendations Acti ve diagnosis, Continue current treatment plan Heart Attack: Low risk Intermediate Risk I have no recommendations Acti ve diagnosis, Continue current treatment plan Clogging of the Arteries: Low risk Intermediate Risk I have no recommendations Acti ve diagnosis, Continue current treatment plan Diabetes: Low Risk I have no recommendations Secondary Prevention/Intervent ion (detects treatable diseases before they may cause symptoms, disability, or ) Prostate Cancer Screening: Colon Cancer Screening: Colonoscopy Date Screening Last Performed: _unsure___ Eye Disease Screening: Dementia Risk: Low I have no recommendations Depression Screening: Negative Active diagnosis, Continue current treatment plan [email or web address] Not available 11/10/2023 15:18:54 Wellness evaluat ion risk assessment stable. Follow-up for hypertension-hypothy roidism -hyperlipidemia -benign prostatic hypertrophy all clinically stable. [...] recognize, using context, where substitutions have occurred. [email or web address] Not available 11/10/2023 16:00:57 05/09/2024 [id number] Follow-up essent ial hypertension, hypothyroidism, benign prostatic [...] recognize, using context, where substitutions have occurred. [email or web address] Not available 05/09/2024 16:13:24 11/07/2024 [id number] Follow-up essent ial hypertension, hypothyroidism, hyperlipidemia, GERD. [...] Created: Sheyla Quiros M.D. 11.07.2024 03:06 PM [email or web address] Not available 11/07/2024 16:06:10 01/28/2025 [id number] Follow-up for essential hypertension, mild hyperlipidemia, hypothyroidism, degenerative joint disease and GERD clinically doing well. Continue with current medication this time see no contraindication for surgical intervention. Follow Up: 4 Months Approximate Date: 05/28/2025 Portions of record are template driven. When necessary additional context will be provided. Additionally some portions have been created with voice recognition software. Occasional wrong-word or s ound-a-like substitutions may have occurred due to the inherent limitations of voice recognition software. Read the chart carefully and recognize, using context, where substitutions may have occurred. Created: Sheyla Quiros M.D. 01.28.2025 03:19 PM [email or web address] Not available 01/28/2025 16:19:04 Reason for Referral None Reported. Results Created Date Observation Date Name Description Value Unit Range Abnormal Flag Note LastModifiedBy Organization Detail LastModifiedTime 09/28/1909/29/2023 T4, FREE T4, free 1.0 NG/dL 0.8-1. 8 normal Not Available [facility] [address] [address] [place], [address], 09/29/2023 03:22:15 09/28/19 24 09/29/2023 TSH TSH 11.04 mIU/L 0.40-4 .50 high Not Available [facility] [address] [place], [address], 09/29/2023 03:22:16 11/27/19 24 11/27/2023 COLOG UARD [...] is negat kaleb. TEST DESCR IPTIO N: [place] site algor ithmi c santiago sis of [...] years or older , who are at [facility] for color ectal cance r (CRC) . Colog uard has been appro tequila for use by the U.[place]. FDA. The perfo rmanc e of Colog uard was estab lishe d in a cross secti onal study of [facility] adult s aged 50-84 . Colog uard perfo rmanc e in patie nts ages 45 to 49 years was estim ated by sub-g roup santiago sis of near- age group s. [...] of 10,00 0 indiv idual s at [facility] risk for color ectal cance r who were scree adryan with both Colog uard and colon oscop y. (Zack Erickson et al, N Engl J Med 2014; [...] uard perfo rmanc e data in a 0 patie nt pivot al study using colon oscop y as the refer ence metho d can be acces sed at the [facility] locat ion: www.e xactl abs.c om/talib last . Addit ional descr iptio n of the Colog uard test proce ss, warni ngs and preca ution s can be found at www.c bassem esteband.c om. Not Available [facility] (Cologuard Orders Only) [address], [place], [address], 12/02/2023 13:19:24 11/30/19 24 12/01/2023 LIPID PANEL , STAND CARMEN cholesterol, total 201 mg/dL <200 high Not Available [facility] [address] [address] [place], [address], 12/01/2023 05:50:56 11/30/19 24 12/01/2023 LIPID PANEL , STAND CARMEN HDL cholesterol 48 mg/dL > or = 40 normal Not Available [facility] [address] [address] [place], [address], 12/01/2023 05:50:56 11/30/19 24 12/01/2023 LIPID PANEL , STAND CARMEN triglyceride s 142 mg/dL <150 normal Not Available [facility] [address] [address] [place], [address], 12/01/2023 05:50:56 11/30/19 24 12/01/2023 LIPID PANEL [...] lated using the Angie n-Hop kins calcu latio n, which is a valid ated novel metho d provi erma marie accur acclint than the Fried angelica equat ion in the estim ation of LDL-C . Angie n SS et al. RACHEL. 2013; 310(6 1): 2061- 2068 (http ://ed ucati on.ID90T jessicaMedudem. [employer]els/f aq/FA Q164) Not Available [address] [place] [address] [place], [address], 12/01/2023 05:50:56 11/30/19 24 12/01/2023 LIPID PANEL , STAND CARMEN chol/HDLC ratio 4.2 (calc ) <5.0 normal Not Available [facility] [address], [address], 12/01/2023 05:50:56 11/30/19 24 12/01/2023 LIPID PANEL , STAND CARMEN non HDL cholesterol 153 mg/dL _(erick c) <130 high For patie nts with diabe rory plus 1 major ASCVD risk facto r, treat ing to a non-H DL-C goal of <100 mg/dL (LDL- C of <70 mg/dL ) is consi shlomod a kellen shaffer c optio n. Not Available [address], [address], 12/01/2023 05:50:56 11/30/19 24 12/01/2023 COMPR EHENS KALEB METAB OLIC PANEL glucose 88 mg/dL 65-99 normal Fasti ng refer ence inter conrado Not Available [facility] [address], [address], 12/01/2023 05:50:58 11/30/19 24 12/01/2023 COMPR EHENS KALEB METAB OLIC PANEL urea nitrogen (BUN) 20 mg/dL 7-25 normal Not Available [facility] [place] [address] [place], [address], 12/01/2023 05:50:58 11/30/19 24 12/01/2023 COMPR EHENS KALEB METAB OLIC PANEL creatinine 1.08 mg/dL 0.70-1 .35 normal Not Available [address] [address] [place], [address], 12/01/2023 05:50:58 11/30/19 24 12/01/2023 COMPR EHENS KALEB METAB OLIC PANEL eGFR 76 mL/mi n/1.7 3m2 > or = 60 normal Not Available [address], [address], 12/01/2023 05:50:58 11/30/19 24 12/01/2023 COMPR EHENS KALEB METAB OLIC PANEL BUN/creatini ne ratio SEE NOTE: (calc ) 6-22 Not Repor ericka: BUN and Creat inine are withi n refer ence range . Not Available [address], [address], 12/01/2023 05:50:58 11/30/19 24 12/01/2023 COMPR EHENS KALEB METAB OLIC PANEL sodium 139 mmol/ L 135-14 6 normal Not Available [address], [address], 12/01/2023 05:50:58 11/30/19 24 12/01/2023 COMPR EHENS KALEB METAB OLIC PANEL potassium 4.4 mmol/ L 3.5-5. 3 normal Not Available [address], [address], 12/01/2023 05:50:58 11/30/19 24 12/01/2023 COMPR EHENS KALEB METAB OLIC PANEL chloride 104 mmol/ L 98-110 normal Not Available [facility] [address], [address], 12/01/2023 05:50:58 11/30/19 24 12/01/2023 COMPR EHENS KALEB METAB OLIC PANEL carbon dioxide 30 mmol/ L 20-32 normal Not Available [address], [address], 12/01/2023 05:50:58 11/30/19 24 12/01/2023 COMPR EHENS KALEB METAB OLIC PANEL calcium 9.0 mg/dL 8.6-10 .3 normal Not Available [address], [address], 12/01/2023 05:50:58 11/30/19 24 12/01/2023 COMPR EHENS KALEB METAB OLIC PANEL protein, total 6.3 g/dL 6.1-8. 1 normal Not Available [address], [address], 12/01/2023 05:50:58 11/30/19 24 12/01/2023 COMPR EHENS KALEB METAB OLIC PANEL albumin 3.9 g/dL 3.6-5. 1 normal Not Available [address], [address], 12/01/2023 05:50:58 11/30/19 24 12/01/2023 COMPR EHENS KALEB METAB OLIC PANEL globulin 2.4 g/dL_ (calc ) 1.9-3. 7 normal Not Available [address], [address], 12/01/2023 05:50:58 11/30/19 24 12/01/2023 COMPR EHENS KALEB METAB OLIC PANEL albumin/glob ulin ratio 1.6 (calc ) 1.0-2. 5 normal Not Available [address], [address], 12/01/2023 05:50:58 11/30/19 24 12/01/2023 COMPR EHENS KALEB METAB OLIC PANEL bilirubin, total 0.7 mg/dL 0.2-1. 2 normal Not Available [address], [address], 12/01/2023 05:50:58 11/30/19 24 12/01/2023 COMPR EHENS KALEB METAB OLIC PANEL alkaline phosphatase 53 U/L 35-144 normal Not Available [address], [address], 12/01/2023 05:50:58 11/30/19 24 12/01/2023 COMPR EHENS KALEB METAB OLIC PANEL AST 19 U/L 10-35 normal Not Available [address], [address], 12/01/2023 05:50:58 11/30/19 24 12/01/2023 COMPR EHENS KALEB METAB OLIC PANEL ALT 14 U/L 9-46 normal Not Available [address], [address], 12/01/2023 05:50:58 11/30/19 24 12/01/2023 CBC (INCL UDES DIFF/ PLT) white blood cell count 6.8 thous and/u L 3.8-10 .8 normal Not Available [address], [address], 12/01/2023 05:50:59 11/30/19 24 12/01/2023 CBC (INCL UDES DIFF/ PLT) red blood cell count 4.30 jordan on/uL 4.20-5 .80 normal Not Available [address], [address], 12/01/2023 05:50:59 11/30/19 24 12/01/2023 CBC (INCL UDES DIFF/ PLT) hemoglobin 13.2 g/dL 13.2-1 7.1 normal Not Available [address], [address], 12/01/2023 05:50:59 11/30/19 24 12/01/2023 CBC (INCL UDES DIFF/ PLT) hematocrit 40.5 % 38.5-5 0.0 normal Not Available [address], [address], 12/01/2023 05:50:59 11/30/19 24 12/01/2023 CBC (INCL UDES DIFF/ PLT) MCV 94.2 fL 80.0-1 00.0 normal Not Available [address], [address], 12/01/2023 05:50:59 11/30/19 24 12/01/2023 CBC (INCL UDES DIFF/ PLT) MCH 30.7 pg 27.0-3 3.0 normal Not Available [facility] [address], [address], 12/01/2023 05:50:59 11/30/19 24 12/01/2023 CBC (INCL UDES DIFF/ PLT) MCHC 32.6 g/dL 32.0-3 6.0 normal Not Available [address], [address], 12/01/2023 05:50:59 11/30/19 24 12/01/2023 CBC (INCL UDES DIFF/ PLT) RDW 13.1 % 11.0-1 5.0 normal Not Available [address], [address], 12/01/2023 05:50:59 11/30/19 24 12/01/2023 CBC (INCL UDES DIFF/ PLT) platelet count 251 thous and/u L 140-40 0 normal Not Available [facility] [address], [address], 12/01/2023 05:50:59 11/30/19 24 12/01/2023 CBC (INCL UDES DIFF/ PLT) MPV 11.8 fL 7.5-12 .5 normal Not Available [address], [address], 12/01/2023 05:50:59 11/30/19 24 12/01/2023 CBC (INCL UDES DIFF/ PLT) absolute neutrophils 2577 cells /uL 1500-7 800 normal Not Available [address], [address], 12/01/2023 05:50:59 11/30/19 24 12/01/2023 CBC (INCL UDES DIFF/ PLT) absolute lymphocytes 2992 cells /uL 850-39 00 normal Not Available [address], [address], 12/01/2023 05:50:59 11/30/19 24 12/01/2023 CBC (INCL UDES DIFF/ PLT) absolute monocytes 809 cells /uL 200-95 0 normal Not Available [address], [address], 12/01/2023 05:50:59 11/30/19 24 12/01/2023 CBC (INCL UDES DIFF/ PLT) absolute eosinophils 394 cells /uL 15-500 normal Not Available [address], [address], 12/01/2023 05:50:59 11/30/19 24 12/01/2023 CBC (INCL UDES DIFF/ PLT) absolute basophils 27 cells /uL 0-200 normal Not Available [address], [address], 12/01/2023 05:50:59 11/30/19 24 12/01/2023 CBC (INCL UDES DIFF/ PLT) neutrophils 37.9 % normal Not Available [facility] [address], [address], 12/01/2023 05:50:59 11/30/19 24 12/01/2023 CBC (INCL UDES DIFF/ PLT) lymphocytes 44.0 % normal Not Available [facility] [address], [address], 12/01/2023 05:50:59 11/30/19 24 12/01/2023 CBC (INCL UDES DIFF/ PLT) monocytes 11.9 % normal Not Available [address], [address], 12/01/2023 05:50:59 11/30/19 24 12/01/2023 CBC (INCL UDES DIFF/ PLT) eosinophils 5.8 % normal Not Available [address], [address], 12/01/2023 05:50:59 11/30/19 24 12/01/2023 CBC (INCL UDES DIFF/ PLT) basophils 0.4 % normal Not Available [address], [address], 12/01/2023 05:50:59 11/30/19 24 12/01/2023 T4, FREE T4, free 1.2 NG/dL 0.8-1. 8 normal Not Available [address], [address], 12/01/2023 05:51:00 11/30/19 24 12/01/2023 PSA, TOTAL [...] This test was perfo rmed using the Attachments.me ns chemi lumin escen t metho d. Value s obtai adryan from diffe rent assay metho ds canno t be used inter rojas eably . PSA level s, regar dless of value , shoul d not be inter prete d as absol iqugmiut evide nce of the prese nce or absen ce of disea se. Not Available [address] [address] [place], [address], 12/01/2023 05:51:01 11/30/19 24 12/01/2023 TSH TSH 1.83 mIU/L 0.40-4 .50 normal Not Available [facility] [address], [address], 12/01/2023 05:51:02 11/19/19 25 11/20/2024 LIPID PANEL , STAND CARMEN cholesterol, total 205 mg/dL <200 high Not Available [address], [address], 11/20/2024 06:02:33 11/19/19 25 11/20/2024 LIPID PANEL , STAND CARMEN HDL cholesterol 54 mg/dL > or = 40 normal Not Available [address], [address], 11/20/2024 06:02:33 11/19/19 25 11/20/2024 LIPID PANEL , STAND CARMEN triglyceride s 80 mg/dL <150 normal Not Available [address], [address], 11/20/2024 06:02:33 11/19/19 25 11/20/2024 LIPID PANEL , STAND CARMEN LDL-choleste rol [...] is a valid ated novel metho d dimas wild r accur acy than the Fried angelica equat ion in the estim ation of LDL-C . Angie heath SS et al. RACHEL. 2013; 310(1 1): 2061- 2068 (http ://ed ucati on.Leigh Ann haque ArriveBefore. com/f aq/FA Q164) Not Available [address], [address], 11/20/2024 06:02:33 11/19/1911/20/2024 LIPID PANEL , STAND CARMEN chol/HDLC ratio 3.8 (calc ) <5.0 normal Not Available [address], [address], 11/20/2024 06:02:33 11/19/1911/20/2024 LIPID PANEL , STAND CARMEN non HDL cholesterol 151 mg/dL _(erick c) <130 high For patie nts with diabe rory plus 1 major ASCVD risk facto r, treat ing to a non-H DL-C goal of <100 mg/dL (LDL- C of <70 mg/dL ) is consi aleksandr a kellen shaffer c optio n. Not Available [address], [address], 11/20/2024 06:02:33 11/19/1911/20/2024 COMPR EHENS KALEB METAB OLIC PANEL glucose 93 mg/dL 65-99 normal Fasti ng refer ence inter conrado Not Available [address], [address], 11/20/2024 06:02:34 11/19/19 25 11/20/2024 COMPR EHENS KALEB METAB OLIC PANEL urea nitrogen (BUN) 20 mg/dL 7-25 normal Not Available [address], [address], 11/20/2024 06:02:34 11/19/19 25 11/20/2024 COMPR EHENS KALEB METAB OLIC PANEL creatinine 1.08 mg/dL 0.70-1 .35 normal Not Available [address], [address], 11/20/2024 06:02:34 11/19/19 25 11/20/2024 COMPR EHENS KALEB METAB OLIC PANEL eGFR 75 mL/mi n/1.7 3m2 > or = 60 normal Not Available [address], [address], 11/20/2024 06:02:34 11/19/1911/20/2024 COMPR EHENS KALEB METAB OLIC PANEL BUN/creatini ne ratio SEE NOTE: (calc ) 6-22 Not Repor ericka: BUN and Creat inine are withi n refer ence range . Not Available [address], [address], 11/20/2024 06:02:34 11/19/19 25 11/20/2024 COMPR EHENS KALEB METAB OLIC PANEL sodium 139 mmol/ L 135-14 6 normal Not Available [address], [address], 11/20/2024 06:02:34 11/19/19 25 11/20/2024 COMPR EHENS KALEB METAB OLIC PANEL potassium 4.1 mmol/ L 3.5-5. 3 normal Not Available [address], [address], 11/20/2024 06:02:34 11/19/19 25 11/20/2024 COMPR EHENS KALEB METAB OLIC PANEL chloride 103 mmol/ L 98-110 normal Not Available [address], [address], 11/20/2024 06:02:34 11/19/19 25 11/20/2024 COMPR EHENS KALEB METAB OLIC PANEL carbon dioxide 32 mmol/ L 20-32 normal Not Available [address], [address], 11/20/2024 06:02:34 11/19/19 25 11/20/2024 COMPR EHENS KALEB METAB OLIC PANEL calcium 9.1 mg/dL 8.6-10 .3 normal Not Available [address], [address], 11/20/2024 06:02:34 11/19/1911/20/2024 COMPR EHENS KALEB METAB OLIC PANEL protein, total 6.4 g/dL 6.1-8. 1 normal Not Available [address], [address], 11/20/2024 06:02:34 11/19/1911/20/2024 COMPR EHENS KALEB METAB OLIC PANEL albumin 4.0 g/dL 3.6-5. 1 normal Not Available [address], [address], 11/20/2024 06:02:34 11/19/1911/20/2024 COMPR EHENS KALEB METAB OLIC PANEL globulin 2.4 g/dL_ (calc ) 1.9-3. 7 normal Not Available [address], [address], 11/20/2024 06:02:34 11/19/1911/20/2024 COMPR EHENS KALEB METAB OLIC PANEL albumin/glob ulin ratio 1.7 (calc ) 1.0-2. 5 normal Not Available [facility] [address], [address], 11/20/2024 06:02:34 11/19/1911/20/2024 COMPR EHENS KALEB METAB OLIC PANEL bilirubin, total 0.7 mg/dL 0.2-1. 2 normal Not Available [address], [address], 11/20/2024 06:02:34 11/19/1911/20/2024 COMPR EHENS KALEB METAB OLIC PANEL alkaline phosphatase 57 U/L 35-144 normal Not Available [facility] [address] [address] [place], [address], 11/20/2024 06:02:34 11/19/1911/20/2024 COMPR EHENS KALEB METAB OLIC PANEL AST 19 U/L 10-35 normal Not Available [address], [address], 11/20/2024 06:02:34 11/19/1911/20/2024 COMPR EHENS KALEB METAB OLIC PANEL ALT 13 U/L 9-46 normal Not Available [address], [address], 11/20/2024 06:02:34 11/19/1911/20/2024 CBC (INCL UDES DIFF/ PLT) white blood cell count 5.5 thous and/u L 3.8-10 .8 normal Not Available [address], [address], 11/20/2024 06:02:35 11/19/1911/20/2024 CBC (INCL UDES DIFF/ PLT) red blood cell count 4.29 jordan on/uL 4.20-5 .80 normal Not Available [address], [address], 11/20/2024 06:02:35 11/19/1911/20/2024 CBC (INCL UDES DIFF/ PLT) hemoglobin 13.3 g/dL 13.2-1 7.1 normal Not Available [address], [address], 11/20/2024 06:02:35 11/19/1911/20/2024 CBC (INCL UDES DIFF/ PLT) hematocrit 40.6 % 38.5-5 0.0 normal Not Available [address], [address], 11/20/2024 06:02:35 11/19/1911/20/2024 CBC (INCL UDES DIFF/ PLT) MCV 94.6 fL 80.0-1 00.0 normal Not Available [address], [address], 11/20/2024 06:02:35 11/19/1911/20/2024 CBC (INCL UDES DIFF/ PLT) MCH 31.0 pg 27.0-3 3.0 normal Not Available [address], [address], 11/20/2024 06:02:35 11/19/1911/20/2024 CBC (INCL UDES DIFF/ PLT) MCHC 32.8 g/dL 32.0-3 6.0 normal For adult s, a sligh t decre ase in the calcu lated MCHC value (in the range of 30 to 32 g/dL) is most likel y not clini braeden signi fican t; kyle er, it shoul d be inter prete d with cauti on in corre lat n with other red cell delia eters and the patie nt's clini erick condi tion. Not Available [address], [address], 11/20/2024 06:02:35 11/19/1911/20/2024 CBC (INCL UDES DIFF/ PLT) RDW 12.3 % 11.0-1 5.0 normal Not Available [address], [address], 11/20/2024 06:02:35 11/19/1911/20/2024 CBC (INCL UDES DIFF/ PLT) platelet count 285 thous and/u L 140-40 0 normal Not Available [address], [address], 11/20/2024 06:02:35 11/19/1911/20/2024 CBC (INCL UDES DIFF/ PLT) MPV 11.3 fL 7.5-12 .5 normal Not Available [address], [address], 11/20/2024 06:02:35 11/19/1911/20/2024 CBC (INCL UDES DIFF/ PLT) absolute neutrophils 2228 cells /uL 1500-7 800 normal Not Available [address], [address], 11/20/2024 06:02:35 11/19/19 25 11/20/2024 CBC (INCL UDES DIFF/ PLT) absolute lymphocytes 2354 cells /uL 850-39 00 normal Not Available [address], [address], 11/20/2024 06:02:35 11/19/1911/20/2024 CBC (INCL UDES DIFF/ PLT) absolute monocytes 556 cells /uL 200-95 0 normal Not Available [address], [address], 11/20/2024 06:02:35 11/19/1911/20/2024 CBC (INCL UDES DIFF/ PLT) absolute eosinophils 325 cells /uL 15-500 normal Not Available [address], [address], 11/20/2024 06:02:35 11/19/1911/20/2024 CBC (INCL UDES DIFF/ PLT) absolute basophils 39 cells /uL 0-200 normal Not Available [address], [address], 11/20/2024 06:02:35 11/19/19 25 11/20/2024 CBC (INCL UDES DIFF/ PLT) neutrophils 40.5 % normal Not Available [address], [address], 11/20/2024 06:02:35 02/25/20 25 11/20/2024 CBC (INCL UDES DIFF/ PLT) lymphocytes 42.8 % normal Not Available [address], [address], 11/20/2024 06:02:35 11/19/19 25 11/20/2024 CBC (INCL UDES DIFF/ PLT) monocytes 10.1 % normal Not Available [address], [address], 11/20/2024 06:02:35 11/19/19 25 11/20/2024 CBC (INCL UDES DIFF/ PLT) eosinophils 5.9 % normal Not Available [address], [address], 11/20/2024 06:02:35 11/19/19 25 11/20/2024 CBC (INCL UDES DIFF/ PLT) basophils 0.7 % normal Not Available [address], [address], 11/20/2024 06:02:35 11/19/1911/20/2024 PSA, TOTAL PSA, total [...] This test was perfo rmed using the Sieme ns chemi lumin escen t metho d. Value s obtai adryan from diffe rent assay metho ds canno t be used inter rojas eably . PSA level s, regar dless of value , shoul d not be inter prete d as absol iqugmiut evide nce of the prese nce or absen ce of disea se. Not Available [address] [place], [address], 11/20/2024 06:02:36 11/19/1911/20/2024 T4, FREE T4, free 1.2 NG/dL 0.8-1. 8 normal Not Available [facility] [address] [place], [address], 11/20/2024 06:02:37 11/19/1911/20/2024 TSH TSH 4.58 mIU/L 0.40-4 .50 high Not Available [facility] [address] [place], [address], 11/20/2024 06:02:38 11/16/19 24 09/18/2023 lab* No observ ation record ed. [id number] Not Available 2023 11:50:54 01/07/2001/06/2025 MRI, knee, w/o contr ast No observ ation record ed. [id number] [facility] [address], [place], [address], 01/06/2025 08:50:03 Result Notes None recorded. Problems Name Problem SNOMED Code Status Onset Date Resolution Date Notes Provider Name and Address Organization Details Recorded Time Anxiety disorder 641119315 Active Not Available [facility] 3 14:46:24 Benign prostatic hyperplasi a 796567647 Active Not Available [facility] 3 14:46:24 Pure hyperchole sterolemia 063151307 Active Not Available [facility] 3 14:46:24 Pain of right knee joint 0632779359275 00 Active 2022 Not Available [facility] 3 14:46:24 Pain of hip region 38306668 Active Not Available [facility] 3 14:46:24 Cervical radiculopa thy 37848917 Active Not Available [facility] 3 14:46:24 Fatigue 02145449 Active Not Available [facility] 3 14:46:24 Acute appendicit is 97782333 Active Not Available [facility] 3 14:46:24 Osteoarthr itis of right knee joint 2083902956477 00 Active 2022 Meg KARON Long null, [facility] 3 14:18:11 Hypothyroi dism 47922744 Active 2022 Kori Hurst CMA null, [facility] 3 16:10:03 Depressive disorder 36779592 Active 2022 Kori Hurst CMA null, [facility] 3 17:30:24 Essential hypertensi on 41465268 Active 2022 PETTY Shoemaker, [facility] 3 15:50:37 Cough 94067228 Active 2022 Sheyla Quiros MD [address], [address], [place], [address] , [facility] 3 12:55:41 Disorder of prostate 98902885 Active 2023 Sheyla Quiros MD [address], [address], [place], [address] , [facility] 4 16:00:49 Colorectal cancer detected by DNA-based stool screening 842202612 Active 2023 Kori Hurst CMA null, [facility] 4 14:38:08 Gastroesop hageal reflux disease 560502469 Active 2024 Sheyla Quiros MD [address], [address], [place], [address] , [facility] 5 16:01:11 Problem Notes None recorded. Procedures Surgical History None recorded. Imaging Results Imaging Date Name Status LastModified by [facility]iz [facility] Details LastModified Time 09/18/2023 lab* [place] [id number] Information no t available 11/16/2023 11:50:54 01/06/2025 MRI, knee, w/o contrast completed [address] [facility] [address], [place], [address], 01/06/2025 08:50:03 Procedure Notes None recorded. Medical Equipment None Reported. Medications Name Sig Start Date Stop Date Status Note LastModified by Organization Details LastModified Time azithromyci n 250 mg tablet TAKE 2 TABLETS BY MOUTH TODAY, THEN TAKE 1 TABLET DAILY FOR 4 DAYS DIRECTED 01/28 completed Not Available Not Available Not Available benzonatate 200 mg capsule TAKE 1 CAPSULE BY MOUTH THREE TIMES A DAY 01/28 completed Not Available Not Available Not Available lisinopril 20 mg tablet TAKE 1 TABLET BY MOUTH EVERY DAY active Not Available Not Available No t Available levothyroxi ne 75 mcg tablet TAKE 1 [...] suspension for injection in office 11/07 completed [facility]: 0003- 0494- 20 Not Available Not Available Not Available pantoprazol e 40 mg tablet,edgar yed release TAKE 1 TABLET BY MOUTH EVERY DAY 2024 active Not Available Not Available Not Avai lable hydrochloro thiazide 12.5 mg capsule TAKE 1 [...] Not Available Not Available No t Available [place] 3 1000mg three daily 10/21 completed Not Available Not Available Not Available multivitami n dily 11/07 completed Not Available Not Available Not Available lidocaine (PF) 10 mg/mL (1 %) injection solution In office injection administe red by the provider 10/21 completed [facility]: 0409- 4276- 17 Not Available Not Available Not Available GaviLyte-G 236 gram-22.74 gram-6.74 gram-5.86 gram oral solution FOLLOW [employer]ORS [employer]ITTEN INSTRU[employer]I ONS 05/09 completed Not Available Not Available Not Available ropivacaine (PF) 5 mg/mL (0.5 %) injection solution in office 11/07 completed [facility] [phone] -[phone]- [phone] Not Available Not Available Not Available Bin[employer]NOW COVID-19 Ag Self Test kit TEST DIRECTED TODAY --- NEED MEDICARE INFO 11/08 completed Not Available Not Available Not Available Vitals Date Recorded Body height Provider Name an d Address Organization Details Last Updated DateTime 09/11/2023 177.8 cm KARON Arroyo [facility] [employer] [facility] 09/11/2023 16:42:14 Date Recorded Body height Body mass index (BMI) Body weight Heart rate Body temperature Oxygen saturation Oxygen saturation in Arterial blood by Pulse oximetry Systolic blood pressure Diastolic blood pressure Provider Name and Address Organization Details Last Updated DateTime 4 182.88 cm 25.4 kg/m2 68169.7 7 g 67 /min 97.5 [degF] 98 % 98 % 128 mm[Hg] 74 mm[Hg] KARON Jones [facility] [employer] [facility] 4 15:06:19 Date Recorded Body height Body mass index (BMI) Body weight Heart rate Body temperature Oxygen saturation Oxygen saturation in Arterial blood by Pulse oximetry Systolic blood pressure Diastolic blood pressure Provider Name and Address Organization Details Last Updated DateTime 4 182.88 cm 24 kg/m2 51257.8 5 g 54 /min 97.9 [degF] 98 % 98 % 118 mm[Hg] 74 mm[Hg] KARON Jones [facility] [employer] [facility] 4 15:33:46 Date Recorded Body height Body mass index (BMI) Body weight Heart rate Body temperature Oxygen saturation Oxygen saturation in Arterial blood by Pulse oximetry Systolic blood pressure Diastolic blood pressure Provider Name and Address Organization Details Last Updated DateTime 5 182.88 cm 23.6 kg/m2 29602.0 7 g 59 /min 97 [degF] 98 % 98 % 120 mm[Hg] 64 mm[Hg] Yesenia Cristine [employer] [facility] [employer] [facility] 5 15:40:25 Date Recorded Body height Body mass index (BMI) Body weight Heart rate Body temperature Oxygen saturation Oxygen saturation in Arterial blood by Pulse oximetry Systolic blood pressure Diastolic blood pressure Provider Name and Address Organization Details Last Updated DateTime 5 182.88 cm 23.4 kg/m2 82569.6 8 g 68 /min 97 [degF] 97 % 97 % 118 mm[Hg] 60 mm[Hg] Yesenia [facility] [employer] [facility] [employer] [facility] 5 16:06:06 Social History Question Answer Notes LastModified by [employer] Details LastModified Time Tobacco Smoking Status Unknown If Ever Smoked Not Available [facility] 11/23/2022 14:43:35 What Was The Date Of Your Most Recent Tobacco Screening? 06/22/2021 [id number] Information not available 11/23/2022 Sex: Unknown Functional Status Question Answer Note LastModified by [employer] Details LastModified Time What is your level of alcohol consumption? Moderate [id number] Information not available 11/23/2022 Mental Status None recorded. Family History Relationship Description Onset Age of this Age Resolved Age Notes LastModified by Organization Details LastModified Time Mother Heart disease [id number] Not available 11/23/2022 14:43:43 Mother Hypertensive disorder [id number] Not available 11/23/2022 14:43:43 Sister Diabetes mellitus [id number] Not available 11/23/2022 14:43:43 Medical History Condition Response NERVE DISEASE N BLINDNESS N RHEUMATIC FEVER N KIDNEY STONES N BLADDER PROBLEMS N MRSA N OTHER # 1 N POLIO N LUNG DISEASE/DISORDER N HISTORY OF DRUG ABUSE N RADIATION / CHEMOTHERAPY N COPD N Other # 2 N BLOOD DISEASES N EAR OR HEARING PROBLEMS N MUMPS N SHINGLES N BOWEL PROBLEMS N DEPRESSION (INCLUDING POST ) N STROKE/TIA N ULCERS N BENIGN PROSTATIC [...] N CHRONIC PAIN SYNDROME N HYPOTHYROIDISM N CONSTIPATION N CAROTID BLOCKAGE N BACK / NECK PROBLEMS Y HAVE YOU BEEN HOSPITALIZED OR SEEN IN THE MEDICAL CENTER IN THE PAST YEAR ? N ATHEROSCLEROSIS [...] Vaccine, Product Unknown 10/20/2020 completed Not Available [facility] 3 14:49:39 COVID-19 Non-[place] Vaccine, Product Unknown 09/29/2020 completed Not Available [facility] 3 14:49:39 Past Encounters Encounter ID Performer Location Encounter Start Date Encounter Closed Date Diagnosis/Indication Diagnosis SNOMED-CT Code Diagnosis ICD10 Code Diagnosis Note [id number] Sheyla Quiros MD [facility] Janet garrett [address] [facility] [address] , [place] [address] 05/11/2021 00:00:00 05/11/2021 11:44:56 [id number] Ceasar Brown MD [facility] [place] [address] [place] [address] 06/22/2021 00:00:00 06/22/2021 12:38:55 [id number] Miki Ashraf MD [facility] [place] [address] [place] [address] 10/21/2022 00:00:00 10/21/2022 12:10:37 [id number] Sheyla Quiros MD [facility] [place] [address] [facility] [address] , [place] [address] 11/08/2022 00:00:00 11/08/2022 12:04:19 [id number] Miki Ashraf MD [facility] [place] [address] [place] [address] 01/04/2023 08:21:43 01/04/2023 09:18:57 Pain of right knee joint 7290876095 78640 M25.561 [id number] Miki Ashraf MD [facility] [place] [address] [place] [address] 04/07/2023 09:27:10 04/07/2023 14:08:14 Pain of right knee joint 2363167101 38430 M25.354 [id number] Miki Ashraf MD [facility] [place] [address] [place] [address] 06/12/2023 14:15:12 06/12/2023 14:42:12 Osteoarthritis of right knee joint 2991038160 65707 M17.11 [id number] Miki Ashraf MD [facility] [place] [address] [place] [address] 09/11/2023 16:31:58 09/20/2023 15:17:08 Osteoarthritis of right knee joint 2591745567 83711 M17.11 [id number] Sheyla Quiros MD [facility] [place] [address] , [place] [address] 11/10/2023 14:56:08 11/10/2023 16:17:34 Adult health examination 128797098 Z00.00 Depression screening 171 015694 Z13.31 Essential hypertension 15816237 I10 Hypothyroidism 51965792 E03.9 Pure hypercholesterolemia 457325222 E78.00 Benign pro static hyperplasia 493322930 N40.0 Disorder of prostate 302 12383 N42.9 [id number] Sheyla Quiros MD [facility] Internal Med [facility] [address] [place] [address] , [place] [address] 05/09/2024 15:13:28 05/09/2024 16:17:53 Essential hypertension 82129544 I10 Hypothyroidism 39942608 E03.9 Benign pro static hyperplasia 538511747 N40.0 Anxiety disorder 0500455 06 F41.9 [id number] Sheyla Quiros MD [facility] Primary Care [facility] [address] [facility] [address] [place] [address] 11/07/2024 15:20:50 11/07/2024 16:12:55 Essential hypertension 17222816 I10 Hypothyroidism 36616184 E03.9 Pure hypercholesterolemia 709620053 E78.00 Gastroesop hageal reflux disease 560211349 K21.9 Disorder of prostate 302 42840 N42.9 [id number] Sheyla Quiros MD [facility] Internal Med [facility] [address] [facility] 24 [place] [address] 01/28/2025 15:44:24 01/28/2025 16:22:01 Essential hypertension 96497081 I10 Hypothyroidism 98935168 E03.9 Gastroesop hageal reflux disease 750580778 K21.9 Osteoarthr itis of right knee joint 3130849034 49151 M17.11 Pure hypercholesterolemia 824313967 E78.00 Health Concerns Section Related Observation LastModified by Organization Detai ls LastModified Time None Recorded Concern Status LastModified by Organization Details LastModified Time None Recorded Advance Directives Directive None Recorded Payers Encounter Date Sequence Insurance Name Policy Number Policy Jha Covered Member ID Jha Member ID Guarantor Name 09/11/2023 1 [place] ([place] Allen Obrien [id number] Allen Obrien 09/11/2023 2 [employer] [place] (MEDICARE SUPPLEMENT) Allen Obrien [id number] Allen Obrien 11/10/2023 1 [place] Obrien [id number] Allen Obrien 11/10/2023 2 [employer] [place] (MEDICARE SUPPLEMENT) Allen Obrien [id number] Allen Obrien 05/09/2024 1 [place] Obrien [id number] Allen Obrien 05/09/2024 2 [employer] [place] (MEDICARE SUPPLE[place]) Allen Obrien [id number] Allen Obrien 11/07/2024 1 [place] Obrien [id number] Allen Obrien 11/07/2024 2 [employer] [place] (MEDICARE SUPPLE[place]) Allen Obrien [id number] Allen Obrien 01/28/2025 1 [place] Obrien [id number] Allen Obrien 01/28/2025 2 [employer] [place] (MEDICARE SUPPLE[place]) Allen Obrien [id number] Allen Obrien Notes Date Note Type Note Provider Name [...] in the right knee. Miki Ashraf MD [address] [place] [address], [facility] [address], [place], [address], [place] [facility] [employer] 09/19/2023 17:16:49 4 text/htm l Patient Name: Allen ObrienDate Of Service: Monday ( 11.10.2023 ): 1955 [...] Systemic Symptoms:none Medication Reconciliation: from medication list. Pganwvlncgs30/28/2023: Screening study abdominal aorta shows no abdominal [...] .075 MG TABLET One Daily Vaccination and Uewqiqdvzjbu3010-03 CovOnShift Surgical Uktigud8245-93 Bilateral Lmvyijgsg3553-98 Lt. Retinal Lbzfvlhkgfg7946-91 Rt. Retinal Detachment Scleral Lxftamax7888-12 Appendectomy Preventative Testing Confirmed by Our Mnxzubb0711/14/2022 ALBUMIN 4.0 G/DL N011/14/2022 PSA 0.15 NG/ML N011/26/2015 [facility] Social HistoryDoes not smoke. Drinks socially. 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 Family HistoryMother 84 from complications of dementia. Father at 64 from respiratory failure and COPD. No brothers. Had three sisters. One of complications of DM and CRF. The other two sisters are living with a hx of HTN. Sheyla Quiros MD [address] [place] [address] [address], [place], [address], [facility] 11/10/2023 16:01:28 4 text/htm l Patient Name: Allen Obriente Of Service: April ( 05.09.2024 ): 1955 [...] Systemic Symptoms:none Medication Reconciliation: from medication list. Crtieyrorxc74/28/2023: Screening study abdominal aorta shows no abdominal [...] .075 MG TABLET One Daily Vaccination and Xxxybqxuynsr6548-73 Covid Pfizer Surgical Xltovlq7722-57 Bilateral Wigbzhfmm1300-68 Lt. Retinal Vsmdteuguvx3980-95 Rt. Retinal Detachment Scleral Hxovmvvh8576-27 Appendectomy Preventative Testing( ) 12/20/2023 Colonoscopy ( 10 Years ) 12/19/2033( ) 11/30/2023 Albumin 3.9 G/DL N( ) 11/30/2023 PSA 0.17 NG/ML N 11/29/2025( ) 11/26/2015 [facility] Social HistoryDoes not smoke. Drinks socially. 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 Family HistoryMother 84 from complications of dementia. Father at 64 from respiratory failure and COPD. No brothers. Had three sisters. One of complications of DM and CRF. The other two sisters are living with a hx of HTN. Sheyla Quiros MD [address] [place] [address], [place], [address], [place] [facility] [employer] 05/09/2024 16:13:38 5 text/htm l Patient Name: [...] Systemic Symptoms:none Medication Reconciliation: from medication list. Jtrjtqxexnl53/28/2023: Screening study abdominal aorta shows no abdominal [...] A Day As Needed Vaccination and Immunization(X) 2020- COVID PureSense Surgical Qkfdqsi1024-21 Bilateral Uliyrtmqc9625-41 Lt. Retinal Dwrvhohxixx9686-51 Rt. Retinal Detachment Scleral Axxgdmmm3919-06 Appendectomy Preventative Testing( ) 12/20/2023 Colonoscopy ( 10 Years ) 12/19/2033( ) 11/30/2023 Albumin 3.9 G/DL N( ) 11/30/2023 PSA 0.17 NG/ML N 11/29/2025( ) 11/26/2015 [facility] Social HistoryDoes not smoke. Drinks socially. [...] 0.70-1.35 MG/DLEGFR 76 > OR = 60 ML/MIN/1.96J4WPFFMUK 9.0 8.6-10.3 MG/DLBILIRUBIN, TOTAL 0.7 0.2-1.2 MG/DLALKALINE PHOSPHATASE 53 35-144 U/LAST 19 10-35 U/LALT 14 9-46 U/LLIPID PANEL, STANDARD Date: 4CHOLESTEROL, TOTAL 201 <200 MG/DLHDL CHOLESTEROL 48 > OR = 40 MG/DLTRIGLYCERIDES 142 <150 MG/DLLDL-CHOLESTEROL 128 MG/DL (CALC)PSA, TOTAL Date: 11/30/2023SA, TOTAL 0.17 < OR = 4.00 NG/MLT4, FREE Date: 11/30/2023T4, FREE 1.2 0.8-1.8 NG/DLTSH Date: 11/30/2023TSH 1.83 0.40-4.50 MIU/L Sheyla Quiros MD [address] [facility], [facility] [address], [place], [address], [facility] 11/07/2024 16:06:30 5 text/htm l Patient Name: Allen Pelaezmal Of Service: Monday ( 01.28.2025 ): 1955 Age: 69 Chief Complaint: Addressed in HPI Problems or conditions discussed in the HPI were the only ones reviewed during the encounter.Only social and family history addressed in the HPI were reviewed during this encounter. Attendant(s): NoneConstitutional and Systemic Symptoms:none Medication Reconciliation: from medication list. Ocpjmoclkxv90-27-9305: MRI of the right knee shows extensive complex tear of the posterior horn and body of the medial meniscus. Severe medial compartment degenerative change. Moderate patellofemoral compartment degenerative change. Oefk-hv-ivambjmb lateral compartment degenerative change. 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 Moderate joint effusion History of Present Illness #1. Essential Hypertension: [...] salt restriction and Hydrochlorothiazide and Lisinopril. #2. Type II Hypercholesterolaemia: Currently taking medication and tolerating well. No interval complaints of any muscle pain or arthralgia. No significant liver changes with medications. Last lipid panel: fair control. Therapy reviewed regarding treatment of cholesterol management and include diet. #3. Hx of hypothyroidism currently stable. Heat intolerance: no Fatigue: no Weight gain: no Difficulty concentrating: no Muscle Symptoms: none Skin Texture: normal Skin Color: normal Currently taking Levothyroxine. #4. Hx of esophageal reflux currently stable. Hx of Complications: none The severity, duration and intensity of symptoms have improved. Frequency: most meals Treatment consists medications taken on intermittent basis. Current therapy includes Protonix. There has been no nausea, eructation, vomiting, hematemesis, dysphagia, velopharyngeal insufficiency and odynophagia. No change in he frequency or intensity of symptoms. Has had no melena. Has had no . Discussed use of H2 antagonists and the possibility of trying to reduce the frequency of the use of any PPI inhibitors and try H2 antagonists to see if symptoms can be controlled with lease intensive therapy since a number of complications are associated with chronic prolonged use of PPI inhibitors. #5. History of torn meniscus as well as degenerative changes of the right knee. Scheduled in later this month for a partial knee replacement of the right knee. Overall been doing well. No interval complaints any new problems. Should have no contraindications for surgical intervention Active Medication ListProtonix 40 MG GRANULE, DELAYED RELEASE One DailyProscar 5 MG TABLET, FILM COATED One Daily HsCelexa 20 MG (TABLET - ORAL) One DailyHydrochlorothiazide 12.5 MG One Monday, Monday And MondayLisinopril 20 MG (TABLET - ORAL) One Daily For HtnOmega-3 1000 Mg BidTamsulosin Hydrochloride .4 MG CAPSULE One DailyLevothyroxine .075 MG TABLET One DailyDiclofenac Sodium 75 MG TABLET, DELAYED RELEASE One Twice A Day As Needed Vaccination and Immunization(X) 2020-09 COVID PureSense Surgical Abodtek4100-07 Bilateral Qgayritft2653-14 Lt. Retinal Wlvxlykpbhw5579-85 Rt. Retinal Detachment Scleral Vajqbayp4087-52 Appendectomy Preventative Testing( ) 11/19/2024 Albumin 4.0 G/DL N( ) 11/19/2024 PSA 0.18 NG/ML N 11/19/2026( ) 12/20/2023 Colonoscopy ( 10 Years ) 12/19/2033( ) 11/26/2015 [facility] Social HistoryDoes not smoke. Drinks socially. 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 Family HistoryMother 84 from complications of dementia. Father at 64 from respiratory failure and COPD.No brothers.Had three sisters. One of complications of DM and CRF. The other 2 from HTN,DM and infirmities TEST RESULT RANGE UNITSCBC (INCLUDES DIFF/PLT) Date: 11/19/2024WHITE BLOOD CELL COUNT 5.5 3.8-10.8 THOUSAND/ULHEMOGLOBIN 13.3 13.2-17.1 G/DLHEMATOCRIT 40.6 38.5-50.0 %PLATELET COUNT 285 140-400 THOUSAND/ULCOMPREHENSIVE METABOLIC PANEL Date: 11/19/2024SODIUM 139 135-146 MMOL/LPOTASSIUM 4.1 3.5-5.3 MMOL/LGLUCOSE 93 65-99 MG/DLUREA NITROGEN (BUN) 20 7-25 MG/DLCREATININE 1.08 0.70-1.35 MG/DLEGFR 75 > OR = 60 ML/MIN/1.75Q2XITHKBBGG, TOTAL 0.7 0.2-1.2 MG/DLALKALINE PHOSPHATASE 57 35-144 U/LAST 19 10-35 U/LALT 13 9-46 U/LLIPID PANEL, STANDARD Date: 5CHOLESTEROL, TOTAL 205 <200 MG/DLHDL CHOLESTEROL 54 > OR = 40 MG/DLTRIGLYCERIDES 80 <150 MG/DLLDL-CHOLESTEROL 134 MG/DL (CALC)PSA, TOTAL Date: 11/19/2024PSA, TOTAL 0.18 < OR = 4.00 NG/MLT4, FREE Date: 11/19/2024T4, FREE 1.2 0.8-1.8 NG/DLTSH Date: 11/19/2024TSH 4.58 0.40-4.50 MIU/L Sheyla Quiros MD [address] [facility], [address], [place], [address], [place] [facility] 01/28/2025 16:19:36
--- OUTSIDE RECORDS SUMMARY | 2025-02-13 01:00 | XMS_ITS | Continuity of Care Document ---
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 [address] , [address], [place], [address], [place]. tel:[phone] Family History Family Member Type Diagnosis Age At Onset No Information Payers Payer name Insurance type Covered republican ID Authoriza tion(s) No Information Social History Type Description Quantity Date Captured Comments Sex Male Smoking Status No Information Chief Complaint And Reason For Visit No Information Reason For Referral Reason For Referral No Information History Of Present Illness Encounter Date Complaint History Of Prese nt Illness No Information Functional Status Date Functional Assessmen t No Information Instructions Date Instruction Additional Infor mation No Information Assessments Type Assessment Date No Information Patient Care Teams Name Effective Dates (start - stop) Status Members No Information
--- OUTSIDE RECORDS SUMMARY | 2025-02-13 01:00 | XMS_ITS | Continuity of Care Document ---
Author Organization [facility] Address [address] [facility] [address] [place] [address] Phone Care Team Providers Care Weekend Caregiver Name Role Phone Wade Disla MD, MD Unavailable Unavailable Allergies, Adverse Reactions, Alerts Substance Reaction Status Criticality No Known Allergies Active No Inform ation Medications Medication Instructions Dosage Effective Dates (start - stop) Status Comments lisinopril 20 mg tablet take 1 tablet by oral route every day 20 MG - Active hydrochlorothiazide 12.5 mg capsule take 2 capsule by oral route every day 25 MG - Active multivitamin tablet take 1 tablet by oral route every day with food - Active citalopram 20 mg tablet take 1 tablet by oral route every day 20 MG - Active Fish Oil 1,000 mg (120 mg-180 mg) capsule - Active Procedures Procedure Date AFTER CATARACT LASER SURGERY CATARACT SURG W/IOL, 1 STAGE NON MED NEC IOL PREOP CATARACT SURG W/IOL, 1 STAGE NON MED NEC IOL PREOP OFFICE/OUTPATIENT VISIT, NEW OPHTHALMIC BIOMETRY OPHTHALMIC BIOMETRY DILATED EXAM RIGHT EYE DILATED EXAM LEFT EYE MICROFLUID DAMIEN TEARS MICROFLUID DAMIEN TEARS INFLAMMADRY INFLAMMADRY EYE EXAM WITH PHOTOS REFRACTION TORIC IOL RT COSMETIC NMN TORIC IOL LT COSMETIC NMN Advance Directives Directive Yes / No Effective Date File Name No Information Encounters Encounter Description Practice Location Reason(s) For Visit Diagnoses Date Provider Providers Copied on Encounter [facility], [address] [place] [address], [id number], [place] tel:[phone] [facility] [place] No Information 9 Nighat Olvera. [address], [address], [place], [place], [id number] , [place]. tel:[phone] Referring Provider: Wade Disla MD P, [address], [place], [address] . tel:[phone] [facility], [address] [place] [address] [address], [id number], [place] tel:[phone] [address] [place] [address] [facility] [place] No Information 7 Nighat Olvera. [address], [address], [place], [place], [id number] , [place]. tel:[phone] Referring Provider: Wade Disla MD P, [address], [place], [address] . tel:[phone] [facility], [address] [place] [address], [id number], [place] tel:[phone] [facility] No Information 7 Nighat Olvera. [address], [address], [place], [place], [id number] , [place]. tel:[phone] Referring Provider: Wade Palma, [address], [place], [address] . tel:[phone] [facility], [address] [place] [address], [place], [place], [id number], [place] tel:[phone] [address] [place] [address] [facility] [place] No Information 7 Nighat Olvera. [address], [address], [place], [place], [id number] , [place]. tel:[phone] Referring Provider: Wade Palma, [address], [place], [address] . tel:[phone] [facility], [address] [place] [address], [id number], tel:[phone] [facility] No Information 7 Nighat Olvera. [address], [address], [place], [place], [id number] , . tel:[phone] Referring Provider: Wade Palma, [address], [place], [address] . tel:[phone] OFFICE/OUTPA TIENT VISIT, [facility], [address] [place] [address], [id number], tel:[phone] [facility]UD[facility]IG blurred vision (chief complaint) Old retinal detachment of both eyesKeratitis sicca, bilateralAge-rel ated nuclear cataract, bilateralDermato chalasis of left upper eyelidDermatocha lasis of right upper eyelidOther chorioretinal scars, bilateral 7 Nighat Olvera. [address], [address], [place], [place], [id number] , . tel:[phone] Referring Provider: Wade Palma, [address], [place], [address] . tel:[phone] Family History Family Member Type Diagnosis Age At Onset Problem (finding) No family hist ory of Macular degeneration Sister Problem (finding) hypertension Sister Problem (finding) Diabetes mellitus Problem (finding) No family history of Gl [place] Payers Payer name Insurance type Covered alliance party ID Authoriza tion(s) [facility] CI [id number] Social History Type Description Quantity Date Captured Comments Sex Male Smoking Status No Information Chief Complaint And Reason For Visit No Information Reason For Referral Reason For Referral No Information History Of Present Illness Encounter Date Complaint History Of Prese nt Illness blurred vision The 62 year old male presents for evaluation of blurred vision in the left > right. It started about 6 month(s) ago. The onset was right eye and left eye. It affects both near and far vision. The symptom is constant. The condition is significant. Pt was referred by Dr. Jayro Cabezas at [facility] for cat eval. Pt C/o blurred vision OS>OD over the past 2-3 months and has been very sensitive to bright lights. Pt reports having to wear sunglasses inside at times due to sensitivity. Pt has a lot of trouble driving at night due to glare and halos from headlights. Pt last wore RGP OD today and OS last night.H/O RD OU, s/p scleral buckle OU, s/p vitrectomy OS.Tearlab 299/322 Functional Status Date Functional Assessmen t No Information Instructions Date Instruction Additional Infor mation RTO for Cat Sx with JG Related t o Dermatochalasis of right upper eyelid Impression/Plan - Di scussed all risks, benefits, procedures and recovery. Patient understands changing glasses will not improve vision. 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 Explained condition does not have a cure and will need artificial tears for maintenance.Inflammadry neg and OSMO 299/322, test were ordered to help asst with exam today. Related to Keratitis sicca, bilateral Impression/Plan - No treatment R elated to Dermatochalasis of left upper eyelid Impression/Plan - No treatment R elated to Dermatochalasis of right upper eyelid Follow up - RTO for Cat Sx with JG Related to Dermatochalasis of right upper eyelid Assessments Type Assessment Date No Information Patient Care Teams Name Effective Dates (start - stop) Status Members No Information
--- OUTSIDE RECORDS SUMMARY | 2025-02-13 01:00 | XMS_ITS | Clinical Summary ---
Author Organization [facility] Address [address] [place] [address] Care Team Providers Care First Line Supervisor Name Role Phone Will Quiros MD Primary Care Provider [phone] [facility] Affiliates and Associated Physician Practices is amultiple site organization consisting of ambulatory clinics and hospital sitesin [place], [place], [place] and [place]. This disclosure is being madepursuant to the Care Everywhere program and may not contain all information available regarding this patient. Last updated 18.[facility] Social History Tobacco Use Types Packs/Day Years [...] patient's age to complete this topic Insurance [facility] Care Teams First Line Supervisor Relationship Specialty Start Date End Date Will Quiros MD [address] [place] [address] [address] [place] [address] PCP - General Internal Medicine 02/16/20
--- OUTSIDE RECORDS SUMMARY | 2025-02-13 01:00 | XMS_ITS | CONTINUITY OF CARE DOCUMENT ---
Author Name carolyn leon Address Unknown Organization [facility] Address [address] [place] [address] Phone [phone] Care Team Providers Care Veneer Sample Maker Name Role Phone carolyn leon Unavailable Unavailable
[2025-02-13] MEDS: LACTATED RINGERS 1,000 ML 30 ML IV CONT ×2 (10:45→16:18)
[2025-02-13] MEDS: TRANEXAMIC ACID 1,000MG/ISO100 1,000 MG/100 ML BAG 200 MG IVPB (10:45)
[2025-02-13] MEDS: ACETAMINOPHEN 500 MG TABLET 1000 MG PO (10:45)
[2025-02-13] MEDS: VANCOMYCIN 1,250 MG/NS 250 ML BAG 166.67 MG IVPB (10:45)
--- NOTE | 2025-02-13 10:51 | WPDANESEPPF ---
Anes - Initial Pre Proc Eval Procedure: Operation Date: 02/13/25 11:30 Proposed Procedures p Right [place] Partial Knee Arthroplasty versus Total Knee Arthroplasty - Miki Ashraf MD Date/Time: 02/13/25 10:51 Surgeon: Miki Ashraf MD Pre Op Diagnosis: O A Rt Knee Medial Compartment Patient Data Age: 69 Gender: M Height: 1.83 m Weight: 78.3 kg Last Vital Signs Temp 36.7 C 01/23/25 14:07 Pulse 59 L 01/23/25 14:07 Resp 16 01/23/25 14:07 BP 111/58 L 01/23/25 14:07 Pulse Ox 98 01/23/25 14:07 O2 Del Method Room Air 01/23/25 14:07 Allergies Allergy/AdvReac Type Severity Reaction Status Date / Time shellfish derived Allergy FACIAL Verified 01/23/25 13:56 SWELLING Home Medications ?Medication ?Instructions ?Recorded ?Confirmed ?Type citalopram 20 mg tablet 20 mg PO DAILY 02/16/20 01/23/25 History hydrochlorothiazide 12.5 mg capsule See Rx Instructions .Route .COMPLEX 02/16/20 01/23/25 History lisinopril 20 mg tablet 20 mg PO DAILY 02/16/20 01/23/25 History finasteride 5 mg tablet 5 mg PO DAILY 12/07/23 01/23/25 History levothyroxine 75 mcg tablet 75 mcg PO DAILY 12/07/23 01/23/25 History pantoprazole 40 mg tablet,delayed 40 mg PO DAILY 12/27/24 01/23/25 History release tamsulosin 0.4 mg capsule 0.4 mg PO DAILY 01/10/25 01/23/25 History ibuprofen 200 mg capsule 600 mg PO Q6H PRN pain 01/23/25 01/23/25 History rgjojbua-gc-uvkqv 300 mcg-K 60 1 tablet PO DAILY 01/23/25 01/23/25 History mcg-lycop 600 mcg-lutein 300 mcg tablet omega 6-guq-pdj-fish oil 1,200 mg 1 cap PO DAILY 01/23/25 01/23/25 History (144 mg-216 mg) capsule (Fish Oil) Laboratory Tests 02/13/25 10:15 Blood Type Pending Antibody Screen Pending Patient hx anesthesia problems: none Family hx anesthesia problems: none Results Review: All pre-operative results and documents have been reviewed as part of the pre-operative evaluation. [facility] Past Medical History Medical History Hypothyroidism History of gastroesophageal reflux (GERD) History of hypertension Surgical History Surgical History History of eye surgery History of appendectomy Social History Social History Smoking status: Never smoker Alcohol intake: current Drinks per week: 10 Substance use type: does not use Do You Feel Safe in your Home?: Yes Lack of Transportation: No Lack of Food: Never True Current Housing: I Have Housing Concerned About Future Housing: No Difficulty Paying Gas/Electric Bills: No Difficulty Paying for Meds: No Currently Unemployed: No Education: Bachelor's Degree Difficulty w/ Childcare or Family Care: No Living arrangements: with family Additional living arrangements comments: [facility]- Spiritual care concerns: No Anes - Eval Final PreProcedure Day of Procedure 02/13/25 10:51 Patient weight: normal Heart: regular rate and rhythm Lungs: clear to auscultation Airway: Mallampati scale class II Neurological: alert and oriented Last oral intake: >/= 8 hours ASA classification: III Emergent: no Anesthetic plan: proceed Anesthesia type and monitoring: general LMA and standard monitoring Results Review: All pre-operative results and documents have been reviewed as part of the pre-operative evaluation. Informed Consent: The patient's anesthetic plan and its attendant risks and benefits were discussed with the patient/family/POA. Questions were solicited and answers provided to the satisfaction of the patient/family/POA.
--- NOTE | 2025-02-13 11:16 | WPDHPUPDATE1 ---
History and Physical Update Update Date/Time: 02/13/25 11:16 History and Physical has been reviewed, including an updated exam of the patient. There are NO changes in the patient's condition. Risks, benefits, and alternatives have been discussed and questions answered. Patient agrees to proceed with procedure.
[2025-02-13] MEDS: SODIUM CHLORIDE 0.9% IV 37.7 ML, MORPHINE SULFATE INJ (*CRX) 2 MG, ROPivacaine HCL 1% 2... INFILTRATE (12:07)
[2025-02-13] MEDS: ceFAZolin 2 GM/D5W 50 ML 2 GM/50 ML BAG IVPB ×2 (12:10→20:27)
[2025-02-13] MEDS: GENTAMICIN BONE CEMENT REFOBACIN 2 EACH TOPICAL (15:06)
[2025-02-13] MEDS: ceFAZolin SODIUM 1 GM VIAL 2 GM IV PUSH (15:28)
[2025-02-13] MEDS: TRANEXAMIC ACID 1,000 MG/10 ML AMPUL 1000 MG IV PUSH (15:32)
[2025-02-13] MEDS: KETOROLAC 15 MG/ML VIAL (*BKC) IV PUSH ×2 (15:35→22:13)
--- NOTE | 2025-02-13 16:30 | PM.OP ---
Procedure Note - Brief Procedure Note - Brief Date of procedure: 02/13/25 O A Rt Knee Medial Compartment Procedure performed: Right [place] partial knee replacement Surgeon: LUIS Paulson Findings: 69-year-old male underwent right [place] partial knee replacement on 02/13 parents involved in the procedure including positioning the patient on the OR table in 1st assisting through the time surgery. Total time spent was 3-1/2 hours
--- NOTE | 2025-02-13 16:55 | P.OP_ITS ---
Procedure Note - Detailed Date of Procedure 02/13/25 Pre-op Diagnosis O A Rt Knee Medial Compartment Post-op Diagnosis Same Procedure Performed Bond partial knee replacement right knee medial compartment Surgeon Miki Ashraf MD Breakfast Manager Dianne Anesthesia General Description of Procedure Patient was brought to the operating room and general anesthesia was administered. The right leg was supported in a special thigh perez over the edge of the bed the patient was positioned accordingly and additional padding with silastic pad under the edge thigh perez utilized. The right leg was prepped and draped usual fashion. He received 2 g Ancef weight based vancomycin 1 g of TXA preoperatively. Limb was exsanguinated tourniquet elevated to 250 mm of mercury. A 4 in anteromedial incision was used from the superomedial edge of the patella to medial to the tibial tubercle 3 cm distal to the joint line. Median parapatellar arthrotomy made in line with the incision and a 2 cm split in the vastus medialis utilized at the superior pole of patella. We identified the loose body in the anterior compartment and this was removed. Osteophytes removed from the patella which had chondromalacia of the medial facet intermediate grade. Trochlear cartilage was in good condition. Osteophytes removed from the superior trochlea and along the medial femoral condyle and osteophytes removed from around the intercondylar notch. ACL looked normal. Superficial chondromalacia of the medial aspect of the lateral femoral condyle noted low-grade. I felt the knee was suitable for partial knee replacement. Anterior horn medial meniscus was resected. The large spoon indicated that the large femur was the appropriate size. The 2 mm spoon gave appropriate soft tissue tension at 110? and this was linked to the tibial cutting guide set to a 7 degree posterior slope alignment aimed reference to the line to the anterior superior iliac spine and this was linked to the spoon with the 4 mm G clamp and tibial guide pinned. The vertical saw cut was made just medial to the apex of the tibial eminence and the horizontal cut was made which removed about 2.5 mm from the low point of the medial plateau and a wafer came out in 1 piece and the posterior slope of the cut matched his anatomy. We brought the mini C-arm for sizing and the size D was appropriate. The position of the vertical wall was appropriate. The size E was going to overhang medial collateral and a little bit anterior to posterior as well. Intramedullary cristiano was inserted into the femoral canal and a cm from the roof of the intercondylar notch about 3 mm lateral to the medial wall of the notch. Central line drawn on the medial femoral condyle. The femoral sizing guide set at 4 mm had appropriate soft tissue tension when inserted into the flexion space of the medial compartment. This was linked to the intramedullary cristiano and positioned in the center the medial femoral condyle which was a nice fit relative to the medial lateral dimension of the femoral condyle. He small and large drills were utilized for the PEG holes the femoral component. The posterior cutting guide was applied the posterior cut made. The 0 mm spigot placed and Tami and trialed with the large femur and the size D tibia. At 110? of flexion, the 4 mm Feeler had appropriate soft tissue tension the 3 was too loose and the 5 was excessively tight. At 20? of flexion, the 2 mm Feeler had appropriate soft tissue tension 3 could not be inserted. We inserted the 2 mm spigot and milled. On trialing again the 4 mm Feeler was now appropriate had 110? of flexion and 20? of flexion and we snapped in the large 4 mm bearing and it had appropriate wiggle both at 110? of flexion and 20? of flexion so we had achieved balance. The bearing tracked between 1 and 2 mm from the vertical wall in flexion confirming proper position of the vertical wall. The impingement guide was placed on the femur and the recess relieving anterior impingement was created with the Reamer and posterior osteophytes removed with the chisel. There was a fair amount of bone posteriorly and I think we removed the loose body that we could see in the posterior recess of the knee joint on the lateral x-ray view preoperatively. The size D slotted tibial trial was spiked to the tibia in the proper position and the slot for the keel made with toothbrush saw and BirdBeak pick. The tibial trial with the keel seated fully and we placed the femoral trial and 4 mm bearing and confirmed full extension without impingement anteriorly and hyperflexion of 140 without impingement posteriorly. Bone quality was excellent in both tibia and femur. A step drill was used to make multiple drill holes in the tibia and femur. The distal femur surface was extremely sclerotic with the last Milling removing only about a mm of bone centrally. The bony surfaces were thoroughly irrigated and dried. One batch of methylmethacrylate was mixed and applied to the size D Bond tibial component then applied to the tibial plateau assessment pressurized and the keel and onto the surface of the tibial cut and the tibial component fully seated and with the trial femur normally is here Lasix 45? of flexion and tourniquet released. Cement was allowed to harden. After cement hardening excess cement was sought for removed and after this we the exsanguinated tourniquet has irrigated and dried the distal femur and another batch of methylmethacrylate was mixed applied to the large femoral component and applied to femur injected to lug holes and femoral component fully seated the knee brought into 45? of flexion with the Feeler for pressurization tourniquet released. Total tourniquet time approximately 120 minutes. After cement hardening excess cement was again sought for and removed and we trialed the 4 bearing which had the same with good in flexion and extension as above and tracked properly. The real 4 mm large bearing for the right knee was snapped into position without difficulty and tracking reconfirmed. Local anesthetic cocktail was injected into the periarticular soft tissues. Additional 2 g of Ancef 1 g of TXA administered. The 1 last search for any debris in the joint was performed. Wound irrigated with antibiotic solution arthrotomy closed with 2. Vicryl and 1. Unidirectional barbed Stratafix suture. Skin closed with 2 subcutaneous Vicryl and 3-0 subcuticular Monocryl and glue. He has 150 cc. There were no complications he was transferred postop recovery room in stable condition. [facility] - Charge Forward: Surgery Billing (Bond partial knee replacement medial compartment right knee)
--- NOTE | 2025-02-13 17:50 | PC.NURSE ---
This patient, Allen Obrien, was received from PACU on 02/13/25 at 1750. Patient/family oriented to unit policies and routines
[2025-02-13] MEDS: FAMOTIDINE 20 MG TABLET PO (20:25)
[2025-02-13] MEDS: ACETAMINOPHEN 325 MG TABLET 650 MG PO (20:25)
[2025-02-13] MEDS: oxyCODONE HCL (*CRX) 5 MG TAB IR PO (20:25)
[2025-02-13] MEDS: VANCOMYCIN 1,000 MG/NS 250 ML 1,000 MG/250 ML BAG 250 MG IVPB (22:12)
[2025-02-14] MEDS: ACETAMINOPHEN 325 MG TABLET 650 MG PO ×3 (00:26→08:57)
[2025-02-14] MEDS: oxyCODONE HCL (*CRX) 5 MG TAB IR PO ×4 (00:26→12:22)
[2025-02-14 01:30] VITALS: BP 131/66; PULSE 72; RESP 16; TEMP 35.7; O2SAT 97
[2025-02-14 04:30] VITALS: BP 120/67; PULSE 51; RESP 20; TEMP 36.4; O2SAT 97
[2025-02-14] MEDS: ceFAZolin 2 GM/D5W 50 ML 2 GM/50 ML BAG IVPB ×2 (04:49→12:36)
[2025-02-14 06:22] LABS: Basophils Percent Auto 0.1 % (0.2-1.2); Eosinophils Percent Auto 0.1 % (0-4.4); Hemoglobin 11.5 g/dL (14.0-18.0); Immature Granulocyte Absolute 0.05 K/mm3 (0.00-0.031); Immature Granulocyte Percent A 0.4 % (0-0.5); Lymphocytes Absolute Auto 1.72 K/mm3 (0.9-3.2); Lymphocytes Percent Auto 12.5 % (18.3-44.2); Mean Corpuscular HGB Conc 32.9 g/dl (32-36); Mean Corpuscular Hemoglobin 30.6 pg (26-34); Mean Corpuscular Volume 93.1 fl (80-100); Mean Platelet Volume 11.3 fl (7.4-10.4); Monocytes Absolute Auto 1.5 K/mm3 (0.1-0.6); Monocytes Percent Auto 11.1 % (2.6-8.5); Neutrophils Absolute Auto 10.5 K/mm3 (1.3-6.7); Neutrophils Percent Auto 75.8 % (45.5-73.1); Platelet Count Result 230 k/mm3 (150-375); Red Blood Count 3.76 M/mm3 (4.6-6.20); Red Cell Distribution Width 14.1 % (11.5-14.5); White Blood Count 13.8 K/mm3 (4.5-10.0)
[2025-02-14] MEDS: LEVOTHYROXINE SODIUM 75 MCG TABLET PO (06:31)
[2025-02-14 06:43] LABS: Anion Gap 3 mmol/L (4-12); Blood Urea Nitrogen 20 mg/dL (9-20); Calcium 8.3 mg/dL (8.4-10.2); Carbon Dioxide 25 mmol/L (22-30); Chloride 105 mmol/L (98-107); Estimated CRCL calculation 68 ml/min; Estimated Glomerular Filt Rate > 60; Glucose 102 mg/dL (65-110); Sodium 133 mmol/L (137-145)
--- NOTE | 2025-02-14 07:28 | P.PNOP_ITS ---
Subjective Subjective Date/Time Seen: 02/14/25 07:28 Interval history: Postop day 1 patient is alert. He is afebrile vital signs are stable. Neurovascularly is intact. He has been up multiple times overnight to the restroom and urinating well. Pain overall is very well controlled. He has very minimal swelling in the knee. Morning labs are noted. Will plan have the patient work with therapy this morning and again this afternoon and once IV antibiotics been completed patient be discharged home early this afternoon. Objective Data Vital Signs Vital Signs: Vital Signs - 24 hr 02/13/25 10:45 02/13/25 16:18 02/13/25 16:35 Temperature 97.5 F L 98.1 F Pulse Rate 60 62 67 Respiratory Rate 14 12 14 Blood Pressure 147/78 H 106/49 L 127/66 Pulse Oximetry 100 100 100 Oxygen Delivery Room Air Simple Face Mask Simple Face Mask Oxygen Flow Rate 8 8 02/13/25 16:50 02/13/25 17:05 02/13/25 17:20 Temperature 97.1 F L Pulse Rate 68 61 60 Respiratory Rate 15 14 12 Blood Pressure 137/71 136/68 140/73 Pulse Oximetry 99 100 100 Oxygen Delivery Room Air Room Air Room Air Oxygen Flow Rate 02/13/25 17:35 02/13/25 18:34 02/13/25 18:45 Temperature 96.9 F L 97.2 F L Pulse Rate 67 53 L 75 Respiratory Rate 20 18 18 Blood Pressure 135/79 157/70 H 154/63 H Pulse Oximetry 100 98 100 Oxygen Delivery Room Air Oxygen Flow Rate 02/13/25 20:00 02/13/25 21:15 02/14/25 01:30 Temperature 98.8 F 96.3 F L Pulse Rate 73 72 Respiratory Rate 18 16 Blood Pressure 133/72 131/66 Pulse Oximetry 99 97 Oxygen Delivery Room Air Oxygen Flow Rate 02/14/25 04:30 Temperature 97.6 F Pulse Rate 51 L Respiratory Rate 20 Blood Pressure 120/67 Pulse Oximetry 97 Oxygen Delivery Oxygen Flow Rate Intake/Output Intake/Output: Intake & Output 02/11/25 02/12/25 02/13/25 02/14/25 23:59 23:59 23:59 23:59 Intake Total 750 390 Balance 750 390 Meds/Results Medications: Active Medications Generic Name Dose Route Start Last Admin Trade Name Freq PRN Reason Stop Dose Admin Acetaminophen 650 mg 02/13/25 20:00 02/14/25 04:41 Acetaminophen 325 Mg Tablet PO 650 mg Q4H FRANCISCA Administration Apixaban 2.5 mg 02/14/25 09:00 Apixaban 2.5 Mg Tablet PO 02/25/25 21:01 Q12HR FRANCISCA Cefdinir 300 mg 02/14/25 18:00 Cefdinir 300 Mg Capsule PO Q12H FRANCISCA Celecoxib 200 mg 02/14/25 08:00 Celecoxib 200 Mg Capsule PO DAILY@0800 FRANCISCA Citalopram Hydrobromide 20 mg 02/14/25 09:00 Citalopram Hydrobromide 20 Mg Tablet PO DAILY FRANCISCA Diphenhydramine HCl 25 mg 02/13/25 18:45 Diphenhydramine Hcl Inj 50 Mg/Ml Vial IV PUSH Q6H PRN Itching Famotidine 20 mg 02/13/25 21:00 02/13/25 20:25 Famotidine 20 Mg Tablet PO 20 mg Q12HR FRANCISCA Administration Fentanyl Citrate 25 mcg 02/13/25 11:01 Fentanyl Citrate Inj (*Crx) 100 Mcg/2 Ml Vial IV PUSH Q2M PRN Pain Finasteride 5 mg 02/14/25 09:00 Finasteride 5 Mg Tablet PO DAILY FRANCISCA Hydrochlorothiazide 12.5 mg 02/14/25 09:00 Hydrochlorothiazide 12.5 Mg Capsule BY MOUTH MoWeFr FRANCISCA Lactated Ringer's 1,000 mls @ 30 mls/hr 02/13/25 11:05 02/13/25 16:18 Lr - Lactated Ringers Iv IV CONT Infused .Q24H FRANCISCA Infusion Lactated Ringer's 1,000 mls @ 30 mls/hr 02/13/25 11:05 02/13/25 17:36 Lr - Lactated Ringers Iv IV CONT Infused .Q24H FRANCISCA Infusion Cefazolin Sodium 2 gm in 50 mls @ 100 mls/hr 02/13/25 20:00 02/14/25 04:49 Ancef 2 Gm/D5w 50 Ml IVPB 02/14/25 12:29 100 mls/hr Q8H FRANCISCA Administration Vancomycin HCl 1,000 mg in 250 mls @ 250 mls/hr 02/13/25 23:00 02/13/25 23:12 Vancomycin 1,000 Mg/Ns 250 Ml IVPB 02/14/25 11:59 Infused Q12H [facility] Infusion Sodium Chloride 1,000 mls @ 125 mls/hr 02/13/25 21:00 Normal Saline Iv IV CONT .Q8H FRANCISCA Levothyroxine Sodium 75 mcg 02/14/25 06:30 02/14/25 06:31 Levothyroxine Sodium 75 Mcg Tablet PO 75 mcg DAILY@0630 [facility] Administration Morphine Sulfate 2 mg 02/13/25 18:45 Morphine Sulfate (*Crx) 2 Mg/Ml Inj IV PUSH Q2H PRN Breakthrough Pain Rated 4-6 or NPO Naloxone HCl 0.1 mg 02/13/25 18:45 Naloxone Hcl 0.4 Mg/Ml Vial IV PUSH Q2M PRN Opiate Reversal Ondansetron HCl 4 mg 02/13/25 11:01 Ondansetron Inj 4 Mg/2 Ml Vial IV PUSH ONCE PRN Nausea Ondansetron HCl 4 mg 02/13/25 18:45 Ondansetron Inj 4 Mg/2 Ml Vial IV PUSH Q4H PRN Nausea And Vomiting Oxycodone HCl 5 mg 02/13/25 18:45 Oxycodone Hcl (*Crx) 5 Mg Tab Ir PO Q4H PRN Pain Rated 7-10 Oxycodone HCl 5 mg 02/13/25 21:00 02/14/25 04:49 Oxycodone Hcl (*Crx) 5 Mg Tab Ir PO 5 mg Q4H FR[facility]ISCA Administration Pantoprazole Sodium 40 mg 02/14/25 21:00 Pantoprazole 40 Mg Tablet PO HS [facility] Polyethylene Glycol 17 gm 02/14/25 09:00 Polyethylene Glycol 3350 17 Gm Powd.Pack PO QAM FR[facility]IS[facility] Senna/Docusate Sodium 2 tab 02/14/25 21:00 Senna/Docusate Sodium Tablet PO BID [facility] Tamsulosin HCl 0.4 mg 02/14/25 21:00 Tamsulosin Hcl 0.4 Mg Capsule PO HS [facility] Radiology Results: ITS Impressions Knee X-Ray 02/13/25 16:45 IMPRESSION: 1. Right knee medial unicompartmental arthroplasty, negative for postoperative purposes. Labs Labs: Laboratory Results - last 24 hr 02/13/25 02/14/25 10:15 05:56 WBC 13.8 H RBC 3.76 L Hgb 11.5 L Hct 35.0 L MCV 93.1 MCH 30.6 MCHC 32.9 RDW 14.1 Plt Count 230 MPV 11.3 H Immature Gran % (Auto) 0.4 Neut % (Auto) 75.8 H Lymph % (Auto) 12.5 L [place] % (Auto) 11.1 H Eos % (Auto) 0.1 Baso % (Auto) 0.1 L Lymph # (Auto) 1.72 [place] # (Auto) 1.5 H Eos # (Auto) 0.0 Baso # (Auto) 0.0 Abs Immat Gran (auto) 0.05 H Absolute Neuts (auto) 10.5 H Absolute Nucleated RBC 0.000 Nucleated RBC % 0.0 Sodium 133 L Potassium 4.0 Chloride 105 Carbon Dioxide 25 Anion Gap 3 L BUN 20 Creatinine 1.03 Estim Creat Clear Calc 68 Estimated GFR > 60 Glucose 102 Calcium 8.3 L Blood Type A Positive Antibody Screen Negative
[2025-02-14 08:30] VITALS: BP 134/68; PULSE 58; RESP 16; TEMP 36.4; O2SAT 98
[2025-02-14] MEDS: FINASTERIDE 5 MG TABLET PO (08:57)
[2025-02-14] MEDS: CITALOPRAM HYDROBROMIDE 20 MG TABLET PO (08:57)
[2025-02-14] MEDS: hydroCHLOROthiazide 12.5 MG CAPSULE BY MOUTH (08:57)
[2025-02-14] MEDS: CELECOXIB 200 MG CAPSULE PO (08:57)
[2025-02-14] MEDS: APIXABAN 2.5 MG TABLET PO (08:57)
[2025-02-14] MEDS: FAMOTIDINE 20 MG TABLET PO (08:57)
[2025-02-14] MEDS: VANCOMYCIN 1,000 MG/NS 250 ML 1,000 MG/250 ML BAG 250 MG IVPB (11:09)
[2025-02-14 12:30] VITALS: BP 155/82; PULSE 57; RESP 16; TEMP 36.4; O2SAT 97
--- NOTE | 2025-02-14 12:33 | PCPTNOTE ---
On 02/14/25, the student, [Flo Minaya], provided care and completed [facility] documentation on this patient. I have reviewed the student's documentation and agree with the findings.
== END 2025-02-14 15:35 | disposition home or self-care (01) ==
LOC: ANHSURGERY 09:34 → ANH3MEDSUR 18:31
PROVIDERS: Physician Assistant Surgical; PCP Internal Medicine; Visit Provider Orthopaedic Surgery
PROC: (CPT 27446; principal; 2025-02-13 11:30)
DX: M17.11 Unilateral primary osteoarthritis, right knee (principal)
CPT/HCPCS: 27446; 36415; 73560; 80048; 85025; 86850; 86900; 86901; 97110; 97161; 97165; 97530; 99199; A9270; C1713; C1776; J0171; J0690; J1100; J1596; J1885; J2003; J2250; J2270; J2371; J2405; J2704; J2795; J3010; J3370; J7120